=== PATIENT | female | born 1960 | race Caucasian/White ===

== ENCOUNTER 2023-06-08 08:58 | Outpatient (CLI) | payer BC, SELFPAY ==
--- OUTSIDE RECORDS SUMMARY | 2023-06-09 08:47 | XMS_ITS | Continuity of Care Document ---
Author Name Unknown Organization [facility] Address [address] [place] [address] Phone Care Team Providers Care Geochemist Name Role Phone Caitlin OD, Carol Unavailable Unavailable Allergies, Adverse Reactions, Alerts Substance Reaction Status Criticality amoxicillin HivesHives Active No Information PENICILLIN Active No Information monosodium glutamate Anaphylaxis Active No Info rmation shellfish derived Active No Informa tion POTASSIUM CLAVULANATE Active No Inf ormation AMOXICILLIN TRIHYDRATE Active No In formation Medications Medication Instructions Dosage Effective Dates (start - stop) Status Comments Restasis 0.05 % eye drops in a dropperette instill 1 drop by ophthalmic route 2 times every day into both eyes 1 drop - Active PROAIR HFA (unknown strength) Not Available - Active EPIPEN (unknown strength) Not Available - Active IBUPROFEN (unknown strength) Not Available - Active MOBIC (unknown strength) Not Available - Active RECLAST (unknown strength) Not Available - Active ADDERALL (unknown strength) Not Available - Active PAPAYA ENZYME (unknown strength) Not Available - Active Vitamin D (unknown strength) Not Available - Active MOTRIN IB (unknown strength) Not Available - Active CALCIUM (unknown strength) Not Available - Active BENTYL (unknown strength) Sig Unknown - Prescribed Elsewhere Not Available - Active NEXIUM (unknown strength) Sig Unknown - Prescribed Elsewhere Not Available - Active SINGULAIR (unknown strength) Sig Unknown - Prescribed Elsewhere Not Available - Active MULTIVITAMINS (unknown strength) Sig Unknown - Prescribed Elsewhere Not Available - Active Restasis 0.05 % eye drops in a dropperette instill 1 drop by ophthalmic route 2 times every day into both eyes 1 drop - No Longer Active called to [place], [place] [phone] VALACYCLOVIR (unknown strength) PRN Not Available - No Longer Active Procedures Procedure Date REFRACTION Ophthalmological Services; Medical Exam And Eval; Comprehensive, Est Pt POSTOP FOLLOW-UP VISIT POSTOP FOLLOW-UP VISIT REVISION OF UPPER EYELID UNLISTED E&M SERVICE VISUAL FIELD EXAMINATION(S) Technical Co mponent EYE PHOTOGRAPHY W/INTERP AND REPORT OFFICE/OUTPATIENT VISIT, EST REFRACTION Ophthalmological Services; Medical Exam And Eval; Comprehensive, Est Pt REFRACTION Ophthalmological Services; Medical Exam And Eval; Comprehensive, Est Pt Routine Vision exam Routine Vision exam Routine ophthalmological exa OFFICE/OUTPATIENT VISIT, EST OFFICE/OUTPATIENT VISIT, EST Routine ophthalmological exa Routine ophthalmological exa Routine ophthalmological exa Routine ophthalmological exa UNLISTED E&M SERVICE Routine ophthalmological exa OFFICE/OUTPATIENT VISIT, EST Routine ophthalmological exa EYE EXAM ESTABLISHED PAT OFFICE/OUTPATIENT VISIT, EST CLOSE TEAR DUCT OPENING Permanent tear duct plug CLOSE TEAR DUCT OPENING OFFICE/OUTPATIENT VISIT, EST CLOSE TEAR DUCT OPENING CLOSE TEAR DUCT OPENING Permanent tear duct plug Advance Directives Directive Yes / No Effective Date File Name No Information Encounters Encounter Description Practice Location Reason(s) For Visit Diagnoses Date Provider Providers Copied on Encounter [facility], [address], [place], [place], [id number] , [place] tel:[phone] [facility] decreased NVA (chief complaint) Nuclear sclerosis of both eyesCortical age-related cataract, both eyesPVD (posterior vitreous detachment), right eyeVitreous syneresis of left eyeKeratoconju nctivitis siccaHyperopia of both eyesRegular astigmatism of both eyesPresbyopia of both eyes 2 Caitlin Medina. [address], [place], [place], [id number], [place]. [phone] [facility], [address], [place], [place], [id number] , [place] tel: [phone] [facility] [place] No Information 2 Eva Barnett. [address], [place], [place], [id number], [place]. [phone] [facility], [address], [place], [place], [id number] , [place] tel:[phone] [facility] [place] s/p Bilateral upper eyelid blepharoplasty (chief complaint) Postoperative eye state 2 Rylan Jorge. [address], [place], [place], [id number], [place]. [phone] [facility], [address], [place], [place], [id number] , [place] tel:[phone] [facility] F/u exam, postop (chief complaint) Post-operative state 2 Rylan Jorge. [address], [place], [place], [id number], [place]. [phone] [facility], [address], [place], [place], [id number] , [place] tel:[phone] [facility] No Information 2 Rylna Jorge. [address], [place], [place], [id number], [place]. [phone] UNLISTED E&M SERVICE [facility], [address], [place], [place], [id number] , [place] tel: [phone] [facility] [place] Surgery Scheduling (chief complaint) Dermatochalasi s of right upper eyelidDermatoc halasis of left upper eyelid 2 Rylan Jorge. [address], [place], [place], [id number], [place]. [phone] OFFICE/OUTPA TIENT VISIT, EST [facility], [address], [place], [place], [id number] , [place] tel:[phone] [facility] Blepharoplasy OU/ DMC OU (chief complaint) Dermatochalasi s of right upper eyelidDermatoc halasis of left upper eyelidEczemato us dermatitis of right upper eyelidEczemato us dermatitis of right lower eyelidEczemato us dermatitis of left upper eyelidEczemato us dermatitis of left lower eyelid 2 Rylan Jorge. [address], [place], [place], [id number], [place]. [phone] Referring Provider: Luisito Mtz, [address], [place], [address] . tel:[phone] [facility], [address], [place], [place], [id number] , [place] tel:[phone] [facility] [place] Dry Eye and Irritation (chief complaint) Keratoconjunct ivitis siccaHyperopia of both eyesPresbyopia of both eyesDermatocha lasis of right upper eyelidDermatoc halasis of left upper eyelid 1 Baljinder Hernandez. [address] [facility], [address], [place], [address], [place]. tel:[phone] [facility], [address], [place], [place], [id number] , [place] tel:[phone] [facility] [place] Cloudy vision (chief complaint) Combined form of age-related cataract, both eyesPresbyopia of both eyesInsufficie ncy of tear film of both eyes 1 Eva Barnett. [address], [place], [place], [id number], [place]. [phone] [facility], [address], [place], [id number] , [place] tel: [phone] [facility] [place] SHAR OU (chief complaint) Hypermetropia, bilateralPresb yopiaDry eye syndrome of bilateral lacrimal glandsAge-rela wanda nuclear cataract, bilateral 3-202 0 No Information [facility], [address], [place], [id number] , [place] tel: [phone] [facility] [place] Decrease Vision OU (chief complaint) Hypermetropia, bilateralPresb yopiaDry eye syndrome of bilateral lacrimal glands -201 9 No Information [facility], [address], [place], [id number] , [place] tel: [phone] [facility] [place] Decreased vision ou (chief complaint) Hypermetropia, bilateralPresb yopiaAge-relat ed nuclear cataract, bilateral 0-201 8 No Information OFFICE/OUTPA TIENT VISIT, EST [facility], [address], [place], [place], [id number] , tel: [phone] [facility] [place] dry eyes (chief complaint) Dry eyes, bilateral 7 Leland Jane. [address], [place], [address], [place]. [phone] OFFICE/OUTPA TIENT VISIT, EST [facility], [address], [place], [place], [id number] , tel:[phone] [facility] [place] Dry eyes (chief complaint) Dry eyes due to decreased tear production 7 Leland Phillpish. [address], [place], [address], [place]. [phone] Referring Provider: Stevan Taylor, [address] [place] [address], [address]. tel:[phone] [facility], [address], [place], [place], [id number] , tel:[phone] [facility] [place] decreased vision (chief complaint)Tear ing (chief complaint) Hypermetropia of both eyesBilateral presbyopiaNucl ear senile cataract of both eyesDry eyes, bilateral Apr-2 0-201 7 Hemcallum Calles. [address] [place] [address], [address], [place]. tel:[phone] [facility], [address], [place], [place], [id number] , [place] tel: [phone] [facility] [place] Routine CEE/Crusty OU (chief complaint) Hypermetropia of both eyesBilateral presbyopiaNucl ear senile cataract of both eyes Apr-1 9-201 6 Hemcallum Calles. [address] [place] [address], [address], [place]. tel:[phone] [facility], [address], [place], [place], [id number] , [place] tel: [phone] [facility] decreased vision (chief complaint)Floa ters (chief complaint) PresbyopiaHype ropiaCataract Nuclear SenileVitreous floaters Nov-0 8-201 5 [facility] [address] [place] [address], [address], [place]. tel:[phone] [facility], [address], [place], [place], [id number] , [place] tel: [phone] [facility] a comprehensive exam (chief complaint) PresbyopiaDry Eye SyndromeCatara ct Nuclear Senile 0 7-201 4 [facility] Stevan. [address] [place] [address], [address], [place]. tel:[phone] UNLISTED E&M SERVICE [facility], [address], [place], [place], [id number] , [place] tel: [phone] [facility] Rx Check (chief complaint) Presbyopia 0 3-201 3 [facility] Stevan. [address] [place] [address], [address], [place]. tel:[phone] [facility], [address], [place], [id number] , [place] tel:[phone] [facility] [place] a comprehensive exam (chief complaint)tear ing (chief complaint) Presbyopia Dec-2 7-201 2 Jaswinder Calles. [facility] [place], [place], [facility], . tel:[phone] OFFICE/OUTPA TIENT VISIT, EST [facility], [address], [place], [place], [id number] , [place] tel: [phone] [facility] [place] emergency (chief complaint)fore ign body sensation (chief complaint) Dry Eye SyndromeCornea l Erosion Recurrent 4201 2 Eva Barnett. [address], [place], [place], [id number], [place]. [phone] [facility], [address], [place], [place], [id number] , tel:[phone] [facility] [place] a comprehensive exam (chief complaint)decr eased vision (chief complaint) Presbyopia Dec-2 0-201 1 Jaswinder Calles. [facility] [place], [place], [facility], . tel:[phone] [facility], [address], [place], [place], [id number] , tel: [phone] [facility] [place] No Information Tai-0 1-201 1 Jaswinder Calles. [address] [place] [address], [address], . tel:[phone] [facility], [address], [place], [place], [id number] , [place] tel: [phone] [facility] No Information Mar-0 3-201 1 Magali English. [address], [place], [place], [id number], [place]. tel:[phone] OFFICE/OUTPA TIENT VISIT, EST [facility], [address], [place], [place], [id number] , [place] tel:[phone] [facility] [place] No Information Dec-0 8-201 0 Leland Jane. [address], [place], [address], [place]. tel:[phone] OFFICE/OUTPA TIENT VISIT, EST [facility], [address], [place], [place], [id number] , [place] tel:[phone] [facility] [place] No Information 9-201 0 Leland Jane. [address], [place], [address], [place]. tel:[phone] Family History Family Member Type Diagnosis Age At Onset Father Problem (finding) blindness or tumor/canc er of the eye Father Problem (finding) Maternal history of cheryle betes mellitus Mother Problem (finding) cataract Mother Problem (finding) Maternal history of cheryle betes mellitus Father Problem (finding) cataract Mother Problem (finding) HBP Father Problem (finding) HBP Immunizations Vaccine Date Status Comments Flu (split) (3 yrs or older) administered Source: Other Provider Payers Payer name Insurance type Covered libertarian ID Authoriza tikaila(s) [facility] [id number] Social History Type Description Quantity Date Captured Comments Alcohol Use Details Caffeine Use Details Unknown Tobacco Use Status Smoking Status Unknown if ever smoked Non-Smoking Tobacco Use Details : No Details Available : No Details Available Sex Female Chief Complaint And Reason For Visit From encounter dated '11/19/2022 12:05'. decreased NVA (chief complaint). Description: The 62 year old patient presents for evaluation of decreased NVA. Pt has noticed changes in both DVA and NVA, but more so in NVA. PT is currently using old glasses as she lost her new glasses. Even when pt had her newer glasses, she states that she was noticing herself struggling with NVA and some slight changes in DVA. Pt states no pain or irritation. Pt uses Restasis QD OU and artificial tears for dry eyes. Pt states that Restasis and artificial tears do help with her dry eyes. Reason For Referral Reason For Referral No Information Plan Of Treatment Date Type Action Status Appointment Pollack, Leeann- CR Pt, Needs Rescheduled BOOKED Patient Education Health Informa tion for You: [facility] Connect completed Patient Education Health Informa tion for You: [facility] Connect completed Patient Education Dicyclomine: Monalisa mcdanieldougNorberto Drug Information completed Future Order: Radiology Order Ze [id number] (8-CR-3), Sent on: Sent History Of Present Illness Encounter Date Complaint History Of Prese nt Illness decreased NVA The 62 year old patient presents for evaluation of decreased NVA. Pt has noticed changes in both DVA and NVA, but more so in NVA. PT is currently using old glasses as she lost her new glasses. Even when pt had her newer glasses, she states that she was noticing herself struggling with NVA and some slight changes in DVA. Pt states no pain or irritation. Pt uses Restasis QD OU and artificial tears for dry eyes. Pt states that Restasis and artificial tears do help with her dry eyes. s/p Bilateral upper eyelid blepharoplasty The 61 year old patient presents for evaluation of s/p Bilateral upper eyelid blepharoplasty. Pt says eyelids are doing good. There are a few that feel raised. They are still a little sore when she forgets and scratches. However they are much better. NEGATIVE COVID SCREENING F/u exam, postop S/p Bilateral u pper eyelid blepharoplasty (06/02/22). Pt notes her eye are swollen today, was crying last night. Overall doing well from surgery. Pt notes improvement in side vision since surgery. Improvement in FBS since surgery. Surgery Scheduling Pt here to sc hedule surgery with Dr Fagan. Blepharoplasy OU/ DMC OU The 61 year old female presents for evaluation of Blepharoplasy OU/ DMC OU. Pt c/o heaviness in her upperlids OU. She states she lifts her eyelids manually to see better on a regular basis. Pt c/o her lids being heavy and feeling like they are pushing her upper eyelashes onto her eyes and causing fbs. Pt c/o having constant fbs in her OD>OS. Pt c/o blurriness in her Dva and OD>OS. Pt denies any issues with pain or pressure feelings in or around her eyes OU. Pt has no other visual complaints. Redness ANABEL and LLL noted recently.Recently dx with thyroid cancer.Restasis BID OU. AT frequently. Dry Eye and Irritation The 61 ye ar old female presents for evaluation of Dry Eye and Irritation. Pt says she has been having FBS OU, OD>OS usually. Pt believes the FBS started in 2019. Pt thinks vision has changed, current glasses Rx not working for distance anymore, takes glasses off when driving. Pt uses genteal tears and PFATs, uses everyday 6-8x/day. Pt feels that droopy lids are contributing and eyes feel better after lifting eyelids. COVID NEGATIVE SCREEN Cloudy vision The 60 year old female presents for evaluation of Cloudy vision in the right eye and left eye. Pt states that her vision has been feeling cloudier since her last visit. She has noticed a strong sensitivity to car headlights at night. No Halos OU. She feels she needs a lot more light to see when it is dim or dark. No pain or discomfort OU. No flashes but has non new floaters OU. NEGATIVE COVID SCREENING. SHAR OU The 59 year old female presents for evaluation of SHAR OU. Pt states that she lost her most recent pair of glasses last week. Pt states that vision seems to have decreased. Pt denies pain in eyes but there is sometimes discomfort. Pt uses artificial tears 3-4x a week to help dryness. Decrease Vision OU The 58 year o ld female presents for evaluation of Decrease Vision OU in NVA > DVA. Pt states her vsn has noticed DVA changes a lot progressing over past year. Pt uses drops for GenTeal eye ointment and has some watering occasionally. Pt states street signs and night driving has become troublesome to where pt tries not to drive at night. especially at dusk. Decreased vision ou The 57 year old female presents for evaluation of Decreased vision ou without correction. Pt states that DVA seems to be fuzzy at times without correction for DVA. Pt states that the glasses that she has is to help with very small print on glasses and feels that they aren't working well and is using a magnifying glasses to help read the fine print now. Is wondering about trying monovision CL's. dry eyes The 56 year old female presents for evaluation of dry eyes in the OU. Pt states that Ou seems to be getting better with the use of ? Refresh tears drops every morning and a couple times at night thoughout the week. very happy with results. Dry eyes The 56 year old female presents for evaluation of Dry eyes in both eyes. She states one eye is worse than the other but does not know which. It started about 1 year ago. She states when it bothers her it is constant, but other times it does not bother her at all. She states dryess bothers her most when she is in catholic. Pt states she does not experience any pain or irritation, just tearing. She states she uses GenTeal a few times a week, as needed. Pt states vision gets blurry from tearing.Pt was referred by Dr. San.When doing DVA test OS she complained of double vision horizontally and seeing shadows. She states she has never had double vision before. She states vision OS is a little more blurry than usual as well. She did not have double vision when testing near vision, when she had her glasses on. decreased vision The 56 year old female presents for evaluation of decreased vision. in the right eye and left eye. It started about 1 year(s) ago. The onset was gradual. It affects distance vision. Seems more difficult to read words on tv. Tearing The patient is p resent for evaluation of Tearing. in the left > right. Pt states she is using Art tears periodically throughout the day, and not helping. Tearing off and on throughout the day. States she feels she needs to drink more water Routine CEE/Crusty OU The 55 yea r old female presents for evaluation of Routine CEE/Crusty OU. Pt states nva has become more blurry, hard to see with out glasses, states for a acouple days her eyes feels like there is matter in them, this morning OS felt more irritated and crusty, has not tried anything to alleviate the symptoms, hx of dry eyes and pt states she has been sick with a cold for over a weekHx-Presbyopia Floaters The patient is p resent for evaluation of Floaters in the right eye and left eye. It started about 2 week(s) ago. It occurs all the time. The onset was sudden. It affects VA not affected. The symptom is constant. The condition is described as seeing floaters. Isolated flash. decreased vision The 54 year old female presents for evaluation of decreased vision. in the right eye and left eye. It started about 1 year(s) ago. The onset was gradual. It affects near vision. Functional Status Date Functional Assessmen t No Information Instructions Date Instruction Additional Infor mation Impression/Plan Impression/Plan Impression/Plan Impression/Plan Impression/Plan Impression/Plan Impression/Plan Return in 1 year Joanna Lujan for Complete Exam. Related to Age-related nuclear cataract, bilateral Impression/Plan Related to Age-r elated nuclear cataract, bilateral Return in 1 year Joanna Lujan for Complete Exam. Related to Dry eye syndrome of bilateral lacrimal glands Impression/Plan Related to Dry e ye syndrome of bilateral lacrimal glands Impression/Plan - Discussed dry eye diagnosis with patient. Recommend using hot compresses. Continue using art tears up to 4 times daily as needed.RV with any optom next year for CEE. Related to Dry eyes, bilateral - RV with any optom next year for CEE. Related to Dry eyes, bilateral - Discussed dry eye diagnosis with patient. Recommend using hot compresses. Recommend using art tears up to 4 times daily as needed. List of recommended artificial tears provided.RV with Dr. Dutton in 1 month for office call. Related to Dry eyes due to decreased tear production - RV with Dr. Adiel alcantara in 1 month for office call. Related to Dry eyes due to decreased tear production - -A new glasses Rx was given. Changing glasses does allow you to see clearer. Power change in Dva will help pt see clearer for distance-Cataracts of both eyes, no significant change in vsn-Dry Eyes, will send pt for consult with Dr Dutton next availableRV with any Electrical Software Engineer in 1 yr for CEENext available consult for Dry Eyes with Dr Dutton Related to Hypermetropia of both eyes - RV with any Optome trist in 1 yr for CEENext available consult for Dry Eyes with Dr Dutton Related to Hypermetropia of both eyes - A new glasses Rx w as given. Return in 1 year. Monitor this (these) for changes. Return if a problem is suspected. Educational materials provided:Cataract. Related to See list of assessments above - There are no retin a rips, holes or tears. The floaters you now see are your new normal. Monitor for a change. Return if a difference is seen. Monitor this (these) for changes. Return if a problem is suspected. Educational materials provided:Flashers/floaters. A new glasses Rx was given. Return in 1 year. Related to See list of assessments above General plan -Presby opia -Dry Eye Syndrome -Cataract, Nuclear Sclerosis - A new glasses Rx was given. No change or change optional. Return in 1 year. Monitor this (these) for changes. Return if a problem is suspected. Educational materials provided:Cataract. Related to See impression: general plan Presbyopia - Zeigler + 2.00 add is routine glasses Rx. Patient does very close, detailed work. Wants flat top design. Had recommended office design 11/17 2012. Related to Presbyopia General plan -Presby opia - A new glasses Rx was given. Return in 1 year. Related to See impression: general plan Dry Eye Syndrome Rec urrent Corneal Erosion OD - Continue lubrication: refresh PM qhs OU, artificial tears prn as well. Decrease alrex to qd OD x 2 days, then D/C alrex. Continue vigamox until out. 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 Return in 1 year. Related to Presbyopia Assessments Type Assessment Date assessment Nuclear sclerosis of both eyes D assessment Cortical age-related cataract, b oth eyes assessment PVD (posterior vitreous detachme nt), right eye assessment Vitreous syneresis of left eye D assessment Keratoconjunctivitis sicca assessment Hyperopia of both eyes assessment Regular astigmatism of both eyes assessment Presbyopia of both eyes 022 Patient Care Teams Name Effective Dates (start - stop) Status Members No Information
== END 2023-06-08 08:59 | disposition home or self-care (01) ==
LOC: NFLDREF 06-09 08:44
PROVIDERS: PCP Emergency Medicine; Referring Provider Emergency Medicine; Visit Provider Emergency Medicine
DX: E78.5 Hyperlipidemia, unspecified (principal); Z13.1 Encounter for screening for diabetes mellitus; Z86.39 Personal history of other endocrine, nutritional and metabolic disease
CPT/HCPCS: 80053; 80061; 84443

== ENCOUNTER 2023-06-18 10:32 | Outpatient (CLI) | payer BC, SELFPAY ==
--- OUTSIDE RECORDS SUMMARY | 2023-06-18 10:36 | XMS_ITS | Continuity of Care Document ---
Author Name Unknown Organization [facility] Address [address] [place] [address] Phone Care Team Providers Care Chief Electrician Name Role Phone Caitlin OD, Carol Unavailable [...] drop - No Longer Active called to [place], [place] [phone] VALACYCLOVIR (unknown strength) PRN Not Available - [...] Encounter [facility], [address], [place], [place], [id number] , [place] tel:[phone] [facility] decreased NVA (chief complaint) Nuclear sclerosis of both eyesCortical age-related cataract, both eyesPVD (posterior vitreous detachment), right eyeVitreous syneresis of left eyeKeratoconju nctivitis siccaHyperopia of both eyesRegular astigmatism of both eyesPresbyopia of both eyes 2 Caitlin Medina. [address], [place], [place], [id number], [place]. [phone] [facility], [address], [place], [place], [address] , [place] tel: [phone] [facility] No Information 2 Eva Barnett. [address], [place], [place], [id number], [place]. [phone] [facility], [address], [place], [place], [id number] , [place] tel:[phone] [facility] [place] s/p Bilateral upper eyelid blepharoplasty (chief complaint) Postoperative eye state 2 Rylan Jorge. [address], [place], [place], [id number], [place]. [phone] [facility], [address], [place], [place], [id number] , [place] tel:[phone] [facility] F/u exam, postop (chief complaint) Post-operative state 2 Rylan Jorge. [address], [place], [place], [id number], [place]. [phone] [facility], [address], [place], [address] , [place] tel:[phone] [facility] No Information 2 Rylan Jorge. [address], [place], [place], [id number], [place]. [phone] UNLISTED E&M SERVICE [facility], [address], [place], [place], [address] , [place] tel: [phone] [facility] [place] Surgery Scheduling (chief complaint) Dermatochalasi s of right upper eyelidDermatoc halasis of left upper eyelid 2 Rylan Jorge. [address], [place], [place], [address], [place]. [phone] OFFICE/OUTPA TIENT VISIT, EST [facility], [address], [place], [place], [id number] , [place] tel:[phone] [facility] Blepharoplasy OU/ DMC OU (chief complaint) Dermatochalasi s of right upper eyelidDermatoc halasis of left upper eyelidEczemato us dermatitis of right upper eyelidEczemato us dermatitis of right lower eyelidEczemato us dermatitis of left upper eyelidEczemato us dermatitis of left lower eyelid 2 Rylan Jorge. [address], [place], [place], [id number], [place]. [phone] Referring Provider: Luisito Mtz, [address], [place], [address] . tel:[phone] [facility], [address], [place], [place], [id number] , [place] tel:[phone] [facility] Dry Eye and Irritation (chief complaint) Keratoconjunct ivitis siccaHyperopia of both eyesPresbyopia of both eyesDermatocha lasis of right upper eyelidDermatoc halasis of left upper eyelid 1 Baljinder Hernandez. [address] [facility], [address], [place], [address], [place]. tel:[phone] [facility], [address], [place], [place], [id number] , [place] tel:[phone] [facility] [place] Cloudy vision (chief complaint) Combined form of age-related cataract, both eyesPresbyopia of both eyesInsufficie ncy of tear film of both eyes 1 Eva Barnett. [address], [place], [place], [address], [place]. [phone] [facility], [address], [place], [id number] , [place] tel: [phone] [facility] [place] SHAR OU (chief complaint) Hypermetropia, bilateralPresb yopiaDry eye syndrome of bilateral lacrimal glandsAge-rela wanda nuclear cataract, bilateral 3-202 0 No Information [facility], [address], [place], [id number] , [place] tel: [phone] [facility] [place] Decrease Vision OU (chief complaint) Hypermetropia, bilateralPresb yopiaDry eye syndrome of bilateral lacrimal glands -201 9 No Information [facility], [address], [place], [id number] , [place] tel: [phone] [facility] [place] Decreased vision ou (chief complaint) Hypermetropia, bilateralPresb yopiaAge-relat ed nuclear cataract, bilateral 0-201 8 No Information OFFICE/OUTPA TIENT VISIT, EST [facility], [address], [place], [place], [id number] , tel: [phone] [facility] [place] dry eyes (chief complaint) Dry eyes, bilateral 7 Leland Jane. [address], [place], [address], [place]. [phone] OFFICE/OUTPA TIENT VISIT, EST [facility], [address], [place], [place], [id number] , tel:[phone] [facility] [place] Dry eyes (chief complaint) Dry eyes due to decreased tear production 7 Leland Phillipsh. [address], [place], [address], [place]. [phone] Referring Provider: Stevan Taylor, [address] [place] [address], [address]. tel:[phone] [facility], [address], [place], [place], [id number] , tel:[phone] [facility] [place] decreased vision (chief complaint)Tear ing (chief complaint) Hypermetropia of both eyesBilateral presbyopiaNucl ear senile cataract of both eyesDry eyes, bilateral Apr-2 0-201 7 Hemcallum Calles. [address] [place] [address], [address], [place]. tel:[phone] [facility], [address], [place], [place], [address] , [place] tel: [phone] [facility] [place] Routine CEE/Crusty OU (chief complaint) Hypermetropia of both eyesBilateral presbyopiaNucl ear senile cataract of both eyes Apr-1 9-201 6 Hemcallum Calles. [address] [place] [address], [address], [place]. tel:[phone] [facility], [address], [place], [place], [address] , [place] tel: [phone] [facility] [place] decreased vision (chief complaint)Floa ters (chief complaint) PresbyopiaHype ropiaCataract Nuclear SenileVitreous floaters Nov-0 8-[address] [facility] [address] [place] [address], [address], [place]. tel:[phone] [facility], [address], [place], [place], [address] , [place] tel: [phone] [facility] [place] a comprehensive exam (chief complaint) PresbyopiaDry Eye SyndromeCatara ct Nuclear Senile 0 7-201 4 [facility] Ste[facility]. [address] [place] [address], [address], [place]. tel:[phone] UNLISTED E&M SERVICE [facility], [address], [place], [place], [address] , [place] tel: [phone] [facility] [place] Rx Check (chief complaint) Presbyopia 0 3-201 3 [facility] Stevan. [address] [place] [address], [address], [place]. tel:[phone] [facility], [address], [place], [place], [address] , [place] tel:[phone] [facility] [place] a comprehensive exam (chief complaint)tear ing (chief complaint) Presbyopia Dec-2 7-201 2 Jaswinder Calles. [facility] [place], [place], [facility], . tel:[phone] OFFICE/OUTPA TIENT VISIT, EST [facility], [address], [place], [place], [address] , [place] tel: [phone] [facility] [place] emergency (chief complaint)fore ign body sensation (chief complaint) Dry Eye SyndromeCornea l Erosion Recurrent 4201 2 Eva Barnett. [address], [place], [place], [address], [place]. [phone] [facility], [address], [place], [place], [address] , tel:[phone] [facility] [place] a comprehensive exam (chief complaint)decr eased vision (chief complaint) Presbyopia Dec-2 0-201 1 Jaswinder Calles. [facility] [place], [facility], . tel:[phone] [facility], [address], [place], [place], [address] , tel: [phone] [facility] [place] No Information Tai-0 1-201 1 Jaswinder Calles. [address] [place] [address], [address], . tel:[phone] [facility], [address], [place], [place], [address] , [place] tel: [phone] [facility] [place] No Information Mar-0 3-201 1 Magali English. [address], [place], [place], [address], [place]. tel:[phone] OFFICE/OUTPA TIENT VISIT, EST [facility], [address], [place], [place], [address] , [place] tel:[phone] [facility] [place] No Information Dec-0 8-201 0 Leland Jane. [address], [place], [address], [place]. tel:[phone] OFFICE/OUTPA TIENT VISIT, EST [facility], [address], [place], [place], [address] , [place] tel:[phone] [facility] [place] No Information 9-201 0 Leland Jane. [address], [place], [address], [place]. tel:[phone] Family History Family Member Type Diagnosis Age [...] Provider Payers Payer name Insurance type Covered republican ID Authoriza tikaila(s) [facility] [id number] Social History Type Description Quantity Date Captured [...] Information completed Future Order: Radiology Order Ze [id number] (8-[id number]), Sent on: Sent History Of Present [...] syndrome of bilateral lacrimal glands Impression/Plan - RV with any optom next year [...] with Dr Dutton next availableRV with any Wood Bucker in 1 yr for CEENext available consult [...] to See impression: general plan Presbyopia - [place] + 2.00 add is routine glasses Rx. [...]
--- NOTE | 2023-06-18 10:45 | CRLHL7_ITS ---
For Patients: As a result of the Cures Act, medical imaging exams and procedure reports are released immediately into your electronic medical record. You may view this report before your referring provider. If you have questions, please contact your health care provider. DIGITAL DIAGNOSTIC BILATERAL MAMMOGRAM USING TOMOSYNTHESIS AND COMPUTER-AIDED DETECTION CLINICAL HISTORY: LEFT breast pain. COMPARISON: 05/19/2022, 03/26/2021. TECHNIQUE: Digital BILATERAL mammogram in four projections. Tomosynthesis and CAD utilized. BREAST COMPOSITION: There are areas of scattered fibroglandular density. FINDINGS: 3D CC/MLO BILATERAL mammogram images submitted. No suspicious masses or architectural distortion. No adenopathy. No suspicious calcifications. IMPRESSION: Normal BILATERAL mammograms. No evidence of malignancy. RECOMMENDATIONS: Annual BILATERAL screening mammography. Results and recommendations discussed with the patient. BI-RADS Category 2: Benign A lay language report of this examination will be provided to the patient. Dictated by Jean Claude Montilla MD @ 06/18/2023 11:45:38 AM jj/Dictated by: Jean Claude Montilla MD @ 06/18/2023 11:45:00 AM (Electronically Signed)
== END 2023-06-18 10:33 | disposition home or self-care (01) ==
LOC: MAMMO 10:34
PROVIDERS: PCP Emergency Medicine; Visit Provider Emergency Medicine
DX: N64.4 Mastodynia (principal)
CPT/HCPCS: 77066; G0279

== ENCOUNTER 2024-07-13 09:12 | Outpatient (CLI) | payer BC, SELFPAY ==
--- OUTSIDE RECORDS SUMMARY | 2024-07-16 06:55 | XMS_ITS ---
Author Organization [facility] Address [address] [place] [address] Care Team Providers Care Airline Flight Attendant Name Role Phone Farshad Cheung MD Primary Care Provider [phone] Jamari Soto MD Unavailable More Davenport MD Unavailable [phone] Active Problems Problem Noted Date Diagnosed Date Papillary thyroid carcinoma 06/01/2022 Overview: 1.6cm tumor on thyroidectomy pathology. Surgery 02/25/22 at [facility] Family history of diabetes mellitus 06/19/2021 Age-related osteoporosis wit hout current pathological fracture 11/23/2018 Dry eyes 05/20/2018 Gastric ulcer 04/30/2015 Gastritis 04/30/2015 Schatzki's ring 04/30/2015 Esophageal stricture 04/29/2015 Dysphagia 04/29/2015 GERD (gastroesophageal reflux disease) 5 Hypoglycemia 04/29/2015 Hyperthyroidism 04/29/2015 Cough 04/25/2015 Asthma exacerbation 04/24/2015 Left wrist pain 06/20/2013 Ganglion of left wrist 06/20/2013 Current Oncology Plans No current plan information found. Other Current Plans ZOLEDRONIC ACID (ZOMETA) (RECLAST)* Plan Start Date:07/19/2023 Treatment Medications No medications scheduled. Past Plans Radiation Treatments * No radiation treatments are documented for this patient in [facility]. Treatments may have been administered in another system.
--- OUTSIDE RECORDS SUMMARY | 2024-07-16 06:55 | XMS_ITS | Clinical Summary ---
Author Organization [facility] Element ID Address [address] [facility] [place] [address] Care Team Providers Care Electrical Logging Engineer Name Role Phone Farshad Cheung MD Primary Care Provider [phone] Jamari Soto MD Unavailable More Davenport MD Unavailable [phone] Source Comments [facility] includes the following individual entities: [facility] (inclues all departments and units of [facility] such as [facility], [facility], [facility], [facility], [facility], [facility]), [facility], [facility], [facility], [facility] Allergies Active Allergy Reactions Criticality Noted Date Comments Amoxicillin Hives 05/10/2017 Augmentin Hives Medium 06/19/2013 Bee Venom Anaphylaxis High 04/05/2017 Clavulanic Acid 06/19/2021 Monosodium Glutamate Shortness Of Breath High 2014 Shellfish-Derived Products Hives 6 Sulfa Antibiotics Hives 06/19/2013 Medications Medication Sig Dispensed Refills Start Date End Date Status montelukast (SINGULAIR) 10 MG tablet Take 10 mg by mouth daily. 0 Active dicyclomine (BENTYL) 10 MG capsule Take 10 mg by mouth as needed. 0 Active ibuprofen (ADVIL,MOTRIN) 800 MG tablet Take 800 mg by mouth 3 times daily as needed. 0 Active albuterol (PROVENTIL HFA) inhaler Inhale 1 puff into the lungs as needed. 0 Active Qwtssvx-Dqwbetmyh-Ognu min D (CALCIUM 500 PO) Take 500 mg by mouth daily. 0 Active amphetamine-dextroamph etamine (ADDERALL, 15MG,) 15 MG tabletIndications:inst ructed as PRN Take 10 mg by mouth daily. 0 Active esomeprazole (NEXIUM) 40 MG granules Take 40 mg by mouth. 0 Active Active Problems Problem Noted Date Diagnosed Date Papillary thyroid carcinoma 06/01/2022 Overview: 1.6cm tumor on thyroidectomy pathology. Surgery 02/25/22 at [facility] Family history of diabetes mellitus 06/19/2021 Age-related osteoporosis wit hout current pathological fracture 11/23/2018 Dry eyes 05/20/2018 Gastric ulcer 04/30/2015 Gastritis 04/30/2015 Schatzki's ring 04/30/2015 Esophageal stricture 04/29/2015 Dysphagia 04/29/2015 GERD (gastroesophageal reflux disease) 5 Hypoglycemia 04/29/2015 Hyperthyroidism 04/29/2015 Cough 04/25/2015 Asthma exacerbation 04/24/2015 Left wrist pain 06/20/2013 Ganglion of left wrist 06/20/2013 Encounters Date Type Department Care Team Description 05/16/2024 Telephone [facility] [address] [facility] [address] [place] [address] Steven Ching, MILY Medication Management (Reclast) from Last 3 Months Family History Medical History Relation Name Comments Diabetes Brother Heart disease Brother Hypertension Brother Alcohol abuse Father Diabetes Father Heart disease Father Hypertension Father High cholesterol Maternal Grandfather Diabetes Maternal Grandmother High cholesterol Maternal Grandmother Hypertension Maternal Grandmother Uterine cancer Maternal Grandmother Diabetes Mother High cholesterol Mother Hypertension Mother Ovarian cancer Mother Alcohol abuse Paternal Grandfather Diabetes Paternal Grandfather Heart disease Paternal Grandfather High cholesterol Paternal Grandfather Hypertension Paternal Grandfather Diabetes Paternal Grandmother Heart disease Paternal Grandmother High cholesterol Paternal Grandmother Hypertension Paternal Grandmother High cholesterol Sister Relation Name Status Comments Brother Father Maternal Grandfather Maternal Grandmother Mother Paternal Grandfather Paternal Grandmother Sister Social History Tobacco Use Types Packs/Day Years Used Date Smoking Tobacco: Former Smokeless Tobacco: Never Tobacco Cessation:Counseling Given: No Alcohol Use Standard Drinks/Week Comments Yes 3 (1 standard drink = 0.6 oz pur e alcohol) 4 times a week PHQ-2 Answer Date Recorded PHQ-9 Total Score [All quest ions must be answered for a valid score] Interpretation of Total Score Depression Severity: 1-4 Minimal Depression, 5-9 Mild Depression, 10-14 Moderate Depression, 15-19 Moderately Severe Depression, 20-27 Severe Depression 0 06/01/2022 Intimate Partner Violence Answer Date R ecorded Fear of Current or Ex-Partner Not on file Emotionally Abused Not on file 11/30/2021 Physically Abused Not on file 11/30/2021 Sexually Abused Not on file 11/30/2021 Sex and Gender Information Value Date Recorded Sex Assigned at Not on file Gender Identity Not on file Sexual Orientation Not on file Last Filed Vital Signs Vital Sign Reading Time Taken Comments Blood Pressure 137/71 07/17/2022 12:56 PM EDT Pulse 69 07/17/2022 12:56 PM EDT Temperature 36.7 ??C (98.1 ??F) 07/17/2022 12:56 PM E DT Respiratory Rate 16 07/17/2022 12:56 PM EDT Oxygen Saturation 100% 07/17/2022 12:56 PM EDT Inhaled Oxygen Concentration - - Weight 55.9 kg (123 lb 3.2 oz) 07/17/2022 12:56 PM EDT Height 156.2 cm (5' 1.5) 06/01/2022 1:44 PM EDT Body Mass Index 22.9 06/01/2022 1:44 PM EDT Plan of Treatment Health Maintenance Due Date Last Done Comments Asthma Spirometry (Yearly) 1960 HIV Screening 1960 Colon Cancer Screening (Colonoscopy) 2004 Herpes Zoster Vaccine (1 of 2) 2009 Pneumococcal Vaccine: Pediatrics (0 to 5 Years) and At-Risk Patients (6 to 64 Years) (2 of 2 - PCV) 10/09/2011 10/09/2010 Cervical Cancer Screening (Cytology) 02/05/2019 02/06/2016, 10/02/2014, 09/25/2013, Additional history exists Breast Cancer Screening with Mammography 07/15/2020 07/15/2018, 05/08/2016, 10/30/2014, Additional history exists COVID-19 Vaccine (3 - 2022-24 season) 2023 06/29/2021, 05/28/2021 Depression Screening (Most Recent Screening Displayed) 11/22/2023 06/01/2022 Influenza Vaccine (#1) 2024 2, 11/10/2021, 11/13/2019, Additional history exists DTap/Tdap/Td Vaccine (3 - Td or Tdap) 11/16/2030 11/16/2020, 01/11/2012 Hepatitis C Screening (Patient's between 18 & 79 without liver disease) Completed 06/09/2019 HPV Vaccine Aged Out No longer eligi ble based on patient's age to complete this topic Hepatitis A Vaccine Aged Out No longe r eligible based on patient's age to complete this topic Hib Vaccine Aged Out No longer eligi ble based on patient's age to complete this topic Polio Vaccine Aged Out No longer elig ible based on patient's age to complete this topic Care Teams Electrical Logging Engineer Relationship Specialty Start Date End Date Farshad Cheung MD [address] [place] [phone] PCP - General 02/11/12 Jamari Soto MD [address] [id number] Obstetrics and Gynecology 09/27/13 More aDvenport MD [address] [facility] [address] [place], [place] [id number] Manager Instrumentation Obstetrics and Gynecology 11/03/16
--- OUTSIDE RECORDS SUMMARY | 2024-07-16 06:55 | XMS_ITS | Encounter Summary ---
Author Organization [facility] Address [address] [place] [address] Care Team Providers Care Printing Assistant Name Role Phone Farshad Cheung MD Primary Care Provider [phone] Jamari Soto MD Unavailable More Davenport MD Unavailable Reason for Visit * Reason Onset Date Comments Medication Management 05/16/2024 Reclast Encounter Details Date Type Department Care Team Description 05/16/2024 Telephone [facility] Diabetes and Endocrinology [address] [facility] [address] [place] [address] Steven Ching TECH Medication Management (Reclast) Social History Tobacco Use Types Packs/Day Years Used Date Smoking Tobacco: Former Smokeless Tobacco: Never Alcohol Use Standard Drinks/Week Comments Yes 3 [...] on file Sexual Orientation Not on file documented as of this encounter Functional Status Functional Status Response Date of Assess ment Is the patient deaf or does he/she have serious difficulty hearing? No 04/24/2015 Is the patient blind or does he/she have serious difficulty seeing even when wearing glasses? No 5 Does the patient have seriou s difficulty walking or climbing stairs? (5 years old or older) No 04/24/2015 Do you have difficulty dress ing or bathing? (5 years old or older) No 04/24/2015 Because of a physical, menta l, or emotional condition, does this patient have difficulty doing errands alone such as visiting a doctor's office or shopping? (15 years old or older) No 04/24/2015 Cognitive Status Response Date of Assessm ent Because of a physical, menta l, or emotional condition, does this patient have serious difficulty concentrating, remembering, or making decisions? (5 years old or older) No 04/24/2015 documented as of this encounter Progress Notes * Steven Ching - 05/18/2024 8:42 AM EDT Thank you for looking into the matter. I will reach out to patient for conformation on the matter. * Joanna Henry PA-C - 05/17/2024 10:04 AM EDT It looks like the last message mentioned that pt moved to [place]. You could reach out to pt to see if she is still out of state and then we can remove from our tracker and patien panel. * Steven Ching - 05/16/2024 10:42 AM EDT Joanna Please Advise, Leeann is on my tracker for Reclast. While looking into it i see the patient no showed for their last infusion appointment on 07/14/23 and Leeann cancelled their last OV visit on 06/01/23. How should we proceed with patient's reclast treatment? Patient was a previous Dr. Miranda patient and was last seen in clinic on 06/18/22 documented in this encounter Plan of Treatment Not on file documented as of this encounter Visit Diagnoses Not on filedocumented in this encounter Additional Health Concerns Assessment Noted Time PHQ-9 Depression Total Score: 0 06/01/20 1:48 PM EDT A fall risk assessment has been complete d for the patient 06/08/2016 12:38 PM EDT documented as of this encounter Care Teams Printing Assistant Relationship Specialty Start Date End Date Farshad Cheung MD [address] [place] [address] PCP - General 02/11/12 Jamari Soto MD [address] [place] [address] Obstetrics and Gynecology 09/27/13 More Davenport MD [address] [facility] [address] [place], [place] [id number] Emergency Crew Supervisor Obstetrics and Gynecology 11/03/16 documented as of this encounter
--- OUTSIDE RECORDS SUMMARY | 2024-07-16 06:55 | XMS_ITS | Clinical Summary ---
[facility] Organization [facility] Address [address] [place] [address] Care Team Providers Care Rental Sales Agent Name Role Phone Unavailable Primary Care Provider Unavailabl e Source Comments You are receiving this document as you are listed as the primary care provider,follow-up provider, or the patient has been referred to you for consultation.This is in compliance with the Medicare and[facility] EHR Incentive Program,which states Providers who transition their patient to another setting of careor provider of care or refers their patient to another provider of care shouldprovide summary care record for each transition of care or referral. [id number] Allergies Active Allergy Reactions Criticality Noted Date Comments Amoxicillin Rash 11/16/2020 hives Amoxicillin-Pot Clavulanate Rash 11/16/20 20 Cardioplegia [place] Formula Anaphylaxis High 11/16 Shellfish-Derived Products Anaphylaxis High 11/16/20 20 Hives Medications Medication Sig Dispensed Refills Start Date End Date Status amphetamine-dextroamph etamine (ADDERALL) 15 MG tablet Take 15 mg by mouth daily. Active esomeprazole (NEXIUM) 20 MG capsule Take 20 mg by mouth daily. Active montelukast (SINGULAIR) 10 MG tablet Take 10 mg by mouth every evening. Active dicyclomine (BENTYL) 10 MG capsule Take 10 mg by mouth 4 times daily before meals and at bedtime. Active ibuprofen (MOTRIN) 800 MG tablet Take 800 mg by mouth every 8 hours as needed for Pain. Active Calcium Acetate, Phos Binder, (CALCIUM ACETATE OR) Active multivitamin (THERAGRAN) tablet Take 1 Tablet by mouth daily. Active Active Problems No known active problems Immunizations Name Administration Dates Next Due Tdap 11/16/2020 Family History Medical History Relation Name Comments Diabetes Father High Cholesterol Father Hypertension Father Cancer Mother Diabetes Brother High Cholesterol Brother Hypertension Brother Cancer Maternal Aunt ovarian Relation Name Status Comments Father Mother Brother Maternal Aunt Social History Tobacco Use Types Packs/Day Years Used Date Smoking Tobacco: Former Alcohol Use Standard Drinks/Week Comments Yes 1 (1 standard drink = 0.6 oz pur e alcohol) PHQ-2 Answer Date Recorded PHQ-2 Score 0 02/13/2021 Sex and Gender Information Value Date Recorded Sex Assigned at Not on file Gender Identity Not on file Sexual Orientation Not on file Last Filed Vital Signs Vital Sign Reading Time Taken Comments Blood Pressure 132/80 06/23/2021 11:02 AM CDT Pulse 83 06/23/2021 11:01 AM CDT Temperature 36.7 ??C (98.1 ??F) 06/23/2021 11:02 AM C DT Respiratory Rate 18 06/23/2021 11:01 AM CDT Oxygen Saturation 99% 06/23/2021 11:01 AM CDT Inhaled Oxygen Concentration - - Weight 56.7 kg (125 lb) 02/13/2021 10:17 AM CDT Height 156.8 cm (5' 1.75) 02/13/2021 10:17 AM C DT Body Mass Index 23.05 02/13/2021 10:17 AM CDT Plan of Treatment Health Maintenance Due Date Last Done Comments Cervical Cancer Screening Due 1959 Colon Cancer Screening Plan Due 1959 Hep C Screening (Preventive Services) 1959 Mammogram 1959 HIV Screening (Preventive Services) 1975 Adult Preventive Visit 1977 Cholesterol 2004 Zoster/Shingles (1 of 2) 2009 COVID-19 Vaccine ( - 2022-2 4 season) 2023 Influenza (#1) 2024 DTaP/Tdap/Td (2 - Tdap) 11/16/2030 11/16/2020 HepA Aged Out No longer eligi ble based on patient's age to complete this topic HepB Aged Out No longer eligi ble based on patient's age to complete this topic Hib Aged Out No longer eligi ble based on patient's age to complete this topic IPV (Polio) Aged Out No longer eligi ble based on patient's age to complete this topic MCV4 Aged Out No longer eligi ble based on patient's age to complete this topic Pneumococcal Aged Out No longer eligi ble based on patient's age to complete this topic
--- OUTSIDE RECORDS SUMMARY | 2024-07-16 06:55 | XMS_ITS | Clinical Summary ---
Author Organization [facility] Address [address] [place] [id number] Care Team Providers Care Business Services Officer Name Role Phone Physician, Not Available At [facility] MD Primary Care Provider Unavailable Allergies Active Allergy Reactions Criticality Noted Date Comments Amoxicillin Hives 05/10/2017 Bee Venom Anaphylaxis 04/05/2017 Msg Shortness of Breath High 04/24/2015 Shellfish-Derived Products 6 Sulfa Drugs 06/19/2013 Medications Medication Sig Dispensed Refills Start Date End Date Status amphetamine-dextroamph etamine (ADDERALL) 15 MG tablet take by mouth. 0 Active atoMOXetine (STRATTERA) 25 MG capsule take by mouth. 0 Active dicyclomine (BENTYL) 10 MG capsule take by mouth. 0 Active ibuprofen (MOTRIN) 800 MG tablet take by mouth. 0 Active mometasone (NASONEX) 50 MCG/ACT nasal spray into nose. 0 Ac tive montelukast (SINGULAIR) 10 MG tablet take by mouth. 0 Active amphetamine-dextroamph etamine (ADDERALL XR) 15 MG 24 hr capsule take 1 capsule by mouth every morning 0 03/11/2017 Active cyclobenzaprine (FLEXERIL) 10 MG tablet take 1 tablet by mouth at bedtime 0 03/18/2017 Active ibuprofen (MOTRIN) 600 MG tablet 0 03/20/2017 Active montelukast (SINGULAIR) 10 MG tablet TK 1 T PO ONCE A DAY UTD 3 03/18/2017 Active esomeprazole (NEXIUM) 40 MG packet take 40 mg by mouth Every morning (before breakfast). 0 Active ALBUTEROL IN take by inhalation. 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 Cuboid fracture 04/09/2017 Chronic pain 04/09/2017 Family History Medical History Relation Name Comments Diabetes Brother Heart Disease Brother Diabetes Father Heart Disease Father Stroke Father Blood Disorder/Disease Mother Cancer Mother ovarian Diabetes Mother Relation Name Status Comments Brother Father Mother Social History Tobacco Use Types Packs/Day Years Used Date Smoking Tobacco: Former Sex and Gender Information Value Date Recorded Sex Assigned at Not on file Gender Identity Not on file Sexual Orientation Not on file Last Filed Vital Signs Vital Sign Reading Time Taken Comments Blood Pressure 112/72 05/10/2017 2:14 PM EDT Pulse 65 05/10/2017 2:14 PM EDT Temperature - - Respiratory Rate - - Oxygen Saturation 99% 04/05/2017 1:11 PM EDT Inhaled Oxygen Concentration - - Weight 54.2 kg (119 lb 6.4 oz) 05/10/2017 2:14 P M EDT Height 156.2 cm (5' 1.5) 05/10/2017 2:14 PM EDT Body Mass Index 22.2 05/10/2017 2:14 PM EDT Plan of Treatment Health Maintenance Due Date Last Done Comments Breast Cancer Screening (Bilateral) 1959 CT Colonography 1959 Colonoscopy 1959 Colorectal Cancer Screening 1959 FIT-DNA 1959 FIT/iFOBT 1959 Hepatitis C Antibody Screening 1959 Sigmoidoscopy 1959 HIV SCREENING 1974 DTaP/Tdap/Td Vaccine (1 - Tdap) 1978 Cervical Cancer Screening 1980 Health Maintenance Exam (Adult) 1981 Shingrix Vaccine (1 of 2) 2009 RSV Vaccine (Adult) (1 - 1-d ose 60+ series) 2019 COVID-19 Vaccine ( - 2022-2 4 season) 2023 Flu Vaccine (#1) 06/22/2024 Hepatitis B Vaccine Aged Out No longe r eligible based on patient's age to complete this topic Care Teams Business Services Officer Relationship Specialty Start Date End Date Physician, Not Available At MD Walter PCP - General 04/05/17
--- OUTSIDE RECORDS SUMMARY | 2024-07-16 06:55 | XMS_ITS | Referral Summary ---
Author Organization [facility] Address [address] [place] [id number] Care Team Providers Care Oil Well Fishing Tool Technician Name Role Phone Physician, Not Available At [facility] MD Primary Care Provider Unavailable Allergies Active [...] 05/10/2017 Cuboid fracture 04/09/2017 Chronic pain 04/09/2017 Social History Tobacco Use Types Packs/Day Years [...] 05/10/2017 2:14 PM EDT Plan of Treatment Not on file Care Teams Oil Well Fishing Tool Technician Relationship Specialty Start Date End Date Physician, Not Available At MD Walter PCP - General 04/05/17
--- OUTSIDE RECORDS SUMMARY | 2024-07-16 06:56 | XMS_ITS | Continuity of Care Document ---
Author Organization [facility] Address [address] [place] [address] Phone Care Team Providers Care Parts Administrator Name Role Phone Caitlin OD, Carol Unavailable Unavailable Allergies, Adverse Reactions, Alerts Substance Reaction Status Criticality amoxicillin HivesHives Active No Information PENICILLIN Active No Information monosodium glutamate Anaphylaxis Active No Info rmation shellfish derived Active No Informa tion POTASSIUM CLAVULANATE Active No Inf ormation AMOXICILLIN TRIHYDRATE Active No In formation Medications Medication Instructions Dosage Effective Dates (start - stop) Status Comments Polytrim 10,000 unit-1 mg/mL eye drops Instill one drop right eye four times per day. - Active ketorolac 0.5 % eye drops Instill one drop right eye four times per day. - Active RESTASIS 0.05% OPHTH SINGLE USE 60 INSTILL 1 DROP IN BOTH EYES TWICE DAILY - Active PROAIR HFA (unknown strength) Not Available - Active EPIPEN (unknown strength) Not Available - Active IBUPROFEN (unknown strength) Not Available - Active MOBIC (unknown strength) Not Available - Active ADDERALL [...] - Prescribed Elsewhere Not Available - Active Procedures Procedure Date REFRACTION Routine Vision Exam Established Patient OFFICE/OUTPATIENT VISIT, EST OFFICE/OUTPATIENT VISIT, EST [facility]; Medical Exam & Eval; Comprehensive, Est Pt Routine Vision exam REFRACTION Ophthalm[facility] Services; Medical Exam And Eval; [...] Providers Copied on Encounter [facility], [address], [place], [id number] , [place] tel:[phone] [facility] [place] routine exam (chief complaint) Hyperopia of both eyesRegular astigmatism, right eyePresbyopia of both eyesChronic dryness of both eyesNuclear sclerosis of both eyesCortical age-related cataract, both eyes 4 Caitlin Carol. [address], [place], [id number], [place]. [phone] OFFICE/OUTPA TIENT VISIT, EST [facility], [address], [place], [id number] , [place] tel: [phone] [facility] [place] Corneal Abrasion OD (chief complaint) Hyperopia of both eyesAbrasion of right cornea, subsequent encounter 4 Ellis Seymour. [address], [place], [id number], [place]. [phone] OFFICE/OUTPA TIENT VISIT, EST [facility], [address], [place], [id number] , [place] tel: [phone] [facility] [place] trauma/injury (chief complaint) Abrasion of right cornea, initial encounter 4 Ellis Seymour. [address], [place], [id number], [place]. [phone] [facility], [address], [place], [id number] , [place] tel: [phone] [facility] [place] Keratoconjunct ivitis sicca / Cataract OU / PVD OU (chief complaint) Dry eye syndrome, bilateralNucle ar sclerosis of both eyesCortical age-related cataract, both eyesPVD (posterior vitreous detachment), right eyeVitreous syneresis, left 4 Caitlin Carol. [address], [place], [id number], [place]. [phone] [facility], [address], [place], [id number] , [place] tel: [phone] [facility] [place] No Information 4 Caitlin Carol. [address], [place], [id number], [place]. tel:[phone] [facility], [address], [place], [id number] , [place] tel: [phone] [facility] [place] Hyperopia OU / Astigmatism OU (chief complaint) Hyperopia of both eyesRegular astigmatism, right eyePresbyopia of both eyes 3 Caitlin Carol. [address], [place], [id number], [place]. tel:[phone] [facility], [address], [place], [id number] , [place] tel: [phone] [facility] [place] decreased NVA (chief complaint) Nuclear sclerosis of both eyesCortical age-related cataract, both eyesPVD (posterior vitreous detachment), right eyeVitreous syneresis of left eyeKeratoconju nctivitis siccaHyperopia of both eyesRegular astigmatism of both eyesPresbyopia of both eyes 2 Caitlin Carol. [address], [place], [place], [id number], [place]. tel:[phone] [facility], [address], [place], [place], [id number] , [place] tel:[phone] [facility] [place] s/p Bilateral upper eyelid blepharoplasty (chief complaint) Postoperative eye state 2 Rylan Jorge. [address], [place], [place], [id number], [place]. tel:[phone] [facility], [address], [place], [id number] , [place] tel:[phone] [facility] [place] F/u exam, postop (chief complaint) Post-operative state 2 Rylan Jorge. [address], [place], [place], [id number], [place]. tel:[phone] [facility], [address], [place], [place], [id number] , [place] tel:[phone] [facility] No Information 2 Rylan Jorge. [address], [place], [place], [id number], [place]. tel:[phone] UNLISTED E&M SERVICE [facility], [address], [place], [place], [id number] , [place] tel:[phone] [facility] [place] Surgery Scheduling (chief complaint) Dermatochalasi s of right upper eyelidDermatoc halasis of left upper eyelid Tai- 2 Rylan Jorge. [address], [place], [place], [id number], [place]. tel:[phone] OFFICE/OUTPA TIENT VISIT, EST [facility], [address], [place], [place], [id number] , [place] tel:[phone] [facility] [place] Blepharoplasy OU/ DMC OU (chief complaint) Dermatochalasi s of right upper eyelidDermatoc halasis of left upper eyelidEczemato us dermatitis of right upper eyelidEczemato us dermatitis of right lower eyelidEczemato us dermatitis of left upper eyelidEczemato us dermatitis of left lower eyelid 2 Rylan Jorge. [address], [place], [place], [id number], [place]. tel:[phone] Referring Provider: Luisito Mtz, [address], [place], [address] . tel:[phone] [facility], [address], [place], [place], [id number] , [place] tel:[phone] [facility] [place] Dry Eye and Irritation (chief complaint) Keratoconjunct ivitis siccaHyperopia of both eyesPresbyopia of both eyesDermatocha lasis of right upper eyelidDermatoc halasis of left upper eyelid 1 Baljinder Hernandez. [address] [facility], [address], [place], [address], [place]. tel:[phone] [facility], [address], [place], [id number] , [place] tel: [phone] [facility] [place] Cloudy vision (chief complaint) Combined form of age-related cataract, both eyesPresbyopia of both eyesInsufficie ncy of tear film of both eyes 1 Eva Barnett. [address], [place], [place], [id number], [place]. [phone] [facility], [address], [place], [id number] , [place] tel: [phone] [facility] [place] SHAR OU (chief complaint) Hypermetropia, bilateralPresb yopiaDry eye syndrome of bilateral lacrimal glandsAge-rela wanda nuclear cataract, bilateral 0 No Information [facility], [address], [place], [place], [id number] , tel: [phone] [facility] [place] Decrease Vision OU (chief complaint) Hypermetropia, bilateralPresb yopiaDry eye syndrome of bilateral lacrimal glands 9 No Information [facility], [address], [place], [id number] , tel: [phone] [facility] [place] Decreased vision ou (chief complaint) Hypermetropia, bilateralPresb yopiaAge-relat ed nuclear cataract, bilateral 8 No Information OFFICE/OUTPA TIENT VISIT, EST [facility], [address], [place], [place], [id number] , tel: [phone] [facility] [place] dry eyes (chief complaint) Dry eyes, bilateral 7 Leland Jane. [address], [place], [address], [place]. [phone] OFFICE/OUTPA TIENT VISIT, EST [facility], [address], [place], [id number] , tel: [phone] [facility] [place] Dry eyes (chief complaint) Dry eyes due to decreased tear production 201 7 Leland Jane. [address], [place], [address], [place]. tel:[phone] Referring Provider: Stevan Taylor, [address] [place] [address], [address]. tel:[phone] [facility], [address], [place], [id number] , [place] tel:[phone] [facility] [place] decreased vision (chief complaint)Tear ing (chief complaint) Hypermetropia of both eyesBilateral presbyopiaNucl ear senile cataract of both eyesDry eyes, bilateral Apr-2 0 7 Jaswinder Calles. [address] [place] [address], [address], [place]. tel:[phone] [facility], [address], [place], [place], [id number] , [place] tel:[phone] [facility] [place] Routine CEE/Crusty OU (chief complaint) Hypermetropia of both eyesBilateral presbyopiaNucl ear senile cataract of both eyes Feb- 6 Michealcallum Calles. [address] [place] [address], [address], [place]. [phone] [facility], [address], [place], [place], [id number] , [place] tel:[phone] [facility] [place] decreased vision (chief complaint)Floa ters (chief complaint) PresbyopiaHype ropiaCataract Nuclear SenileVitreous floaters 5 Jaswinder Calles. [address] [place] [address], [address], [place]. tel:[phone] [facility], [address], [place], [id number] , [place] tel:[phone] [facility] [place] a comprehensive exam (chief complaint) PresbyopiaDry Eye SyndromeCatara ct Nuclear Senile 4 Jaswinder Calles. [address] [place] [address], [address], [place]. [phone] UNLISTED E&M SERVICE [facility], [address], [place], [place], [id number] , tel: [phone] [facility] [place] Rx Check (chief complaint) Presbyopia 3-201 3 Jaswinder Calles. [facility] [place], [place], [facility], . tel:[phone] [facility], [address], [place], [place], [id number] , [place] tel: [phone] [facility] [place] a comprehensive exam (chief complaint)tear ing (chief complaint) Presbyopia Dec-2 7-201 2 Jaswinder Calles. [address] [place] [address], [facility], . tel:[phone] OFFICE/OUTPA TIENT VISIT, EST [facility], [address], [place], [place], [id number] , tel:[phone] [facility] [place] emergency (chief complaint)fore ign body sensation (chief complaint) Dry Eye SyndromeCornea l Erosion Recurrent 201 2 Eva Anibal. [address], [place], [place], [id number], [place]. [phone] [facility], [address], [place], [place], [id number] , [place] tel: [phone] [facility] [place] a comprehensive exam (chief complaint)decr eased vision (chief complaint) Presbyopia Dec-2 0-201 1 Jaswinder Calles. [address] [place] [address], [facility], [place]. tel:[phone] [facility], [address], [place], [id number] , [place] tel: [phone] [facility] [place] No Information Tai-0 1-201 1 Jaswinder Calles. [address] [place] [address], [facility], . tel:[phone] [facility], [address], [place], [place], [id number] , tel:[phone] [facility] [place] No Information 0 3-201 1 Magali English. [address], [place], [place], [id number], [place]. [phone] OFFICE/OUTPA TIENT VISIT, EST [facility], [address], [place], [place], [id number] , tel: [phone] [facility] [place] No Information 8201 0 Leland Jane. [address], [place], [address], [place]. tel:[phone] OFFICE/OUTPA TIENT VISIT, EST [facility], [address], [place], [place], [id number] , [place] tel: [phone] [facility] [place] No Information 9201 0 Leland Jane. [address], [place], [address], [place]. [phone] Family History Family Member Type Diagnosis Age At Onset Father Problem (finding) blindness or tumor/canc er of the eye Father Problem (finding) Maternal history of cheryle betes mellitus Mother Problem (finding) cataract Mother Problem (finding) Maternal history of cheryle betes mellitus Father Problem (finding) cataract Mother Problem (finding) HBP Father Problem (finding) HBP Paternal aunt Problem Cancer, breast Immunizations Vaccine Date Status Comments Flu (split) (3 yrs or older) administered Source: Other Provider Payers Payer name Insurance type Covered alliance party ID Authorseraa tikaila(s) [facility] [id number] Social History Type Description Quantity Date Captured Comments Alcohol Use Details Caffeine Use Details Unknown Tobacco Use Status Ex-cigarette smoker 024 Smoking Status Former smoker Sex Female Chief Complaint And Reason For Visit From encounter dated '06/30/2024 15:25'. routine exam (chief complaint). Description: The 63 year old patient presents for evaluation of routine exam. Pt states OD has had a burning sensation since yesterday. Dva is stable with current Rx OU per pt. Nva has declined and pt is having difficulty reading with current Rx. Pt was treated for corneal abrasion OD 8-5-24 and 5-0-70Uqtiufody DC'd 7-0-15Jlhihpfs OU BID 12pmGenteal OU PRN Reason For Referral Reason For Referral No Information Plan Of Treatment Date Type Action Status Patient Education Health Informa tion for You: MedlinePlus Connect completed Patient Education Health Informa tion for You: MedlinePlus Connect completed Patient Education Dicyclomine: M edlinePlus Drug Information completed Future Order: Radiology Order Ze [id number] (8-CR-3), Sent on: Sent History Of Present Illness Encounter Date Complaint History Of Prese nt Illness routine exam The 63 year old patient presents for evaluation of routine exam. Pt states OD has had a burning sensation since yesterday. Dva is stable with current Rx OU per pt. Nva has declined and pt is having difficulty reading with current Rx. Pt was treated for corneal abrasion OD 8-5-24 and 9-6-23Laggrxgob DC'd 6-9-62Zbydbmci OU BID 12pmGenteal OU PRN Corneal Abrasion OD The 63 year old patient presents for evaluation of Corneal Abrasion OD. PT c/o burning sensation OD, pt states it has been occurring today only . PT c/o blurry vision OD. PT taking and tolerating Ketoralac 4x a day last taken 830am Polytrim 4x a day 730am. trauma/injury The 63 year old patient presents for evaluation of trauma/injury in the right eye. Pt c/o blurry vision OD and pain, light sensitivity, and FBS OD since yesterday, states using restasis, ice packs, and tylenol which seems to help pain a little. States pt hit OD on the corner of a beside table early yesterday morning. States good comfort OS and vision stable OS since last visit(11/23/2023). Pt notes having history of injuring OD before.Pt using:Restasis BID OU, last dose 8:30a today.AT PRN OU Keratoconjunctivitis sicca / Cataract OU / PVD OU The 63 year old patient presents for evaluation of Keratoconjunctivitis sicca / Cataract OU / PVD OU. Pt states that she is here for her annual eye exam and to see if she needs to replace her gls. Pt lost her newest pair of glasses. She can tell that the older ones do not work as well as her newer pair. Pt has no other visual complaints OU. Pt taking her eye gtt as directed and tolerating it well. Pt using her AT 1-2 x/week, they are helpful when used. -Restasis BID OU @ 1100am Hyperopia OU / Astigmatism OU Th e 62 year old patient presents for evaluation of Hyperopia OU / Astigmatism OU. Pt states that she is here for her annual eye exam. Pt Nva and Dva are both good with gls OU. Pt c/o some dryness OU that she is using AT for about once a week or so. They are helpful when used. Pt taking her Restasis as directed usually, but she has been taking it once a day or less, lately. Pt has no other visual complaints OU.-Restasis BID OU @ Wednesday night.-Negative Covid Screening. decreased NVA The 62 year old patient [...] bothers her most when she is in evangelical. Pt states she does not experience any [...] No Information Instructions Date Instruction Additional Infor acosta Impression/Plan Impression/Plan Impression/Plan Impression/Plan Impression/Plan Impression/Plan Impression/Plan Impression/Plan Impression/Plan Impression/Plan Impression/Plan Impression/Plan [...] to Dry eyes, bilateral - RV with Dr. Adiel alcantara in 1 month for office call. Related to Dry eyes due to decreased tear production - Discussed dry eye diagnosis with patient. Recommend using hot compresses. Recommend using art tears up to 4 times daily as needed. List of recommended artificial tears provided.RV with Dr. Dutton in 1 month for office call. Related to Dry eyes due to decreased tear production - RV with any Optome trist in 1 yr for CEENext available consult for Dry Eyes with Dr Dutton Related to Hypermetropia of both eyes - -A new glasses Rx was given. Changing glasses does allow you to see clearer. Power change in Dva will help pt see clearer for distance-Cataracts of both eyes, no significant change in vsn-Dry Eyes, will send pt for consult with Dr Dutton next availableRV with any Irrigation System Operator in 1 yr for CEENext available consult [...] to See impression: general plan Presbyopia - [place] + 2.00 add is routine glasses Rx. [...] to Presbyopia Assessments Type Assessment Date assessment Hyperopia of both eyes 24 assessment Regular astigmatism, right eye A assessment Presbyopia of both eyes 024 assessment Chronic dryness of both eyes Jun assessment Nuclear sclerosis of both eyes A assessment Cortical age-related cataract, b oth eyes Patient Care Teams Name Effective Dates (start - stop) Status Members No Information
== END 2024-07-13 09:13 | disposition home or self-care (01) ==
LOC: NFLDREF 07-16 06:54
PROVIDERS: PCP Emergency Medicine; Referring Provider Emergency Medicine; Visit Provider Emergency Medicine
DX: Z00.00 Encounter for general adult medical examination without abnormal findings (principal); C73 Malignant neoplasm of thyroid gland; M81.0 Age-related osteoporosis without current pathological fracture; E78.2 Mixed hyperlipidemia
CPT/HCPCS: 80053; 80061; 82306; 84443

== ENCOUNTER 2024-07-31 12:37 | Outpatient (CLI) | payer BC, SELFPAY ==
--- OUTSIDE RECORDS SUMMARY | 2024-07-31 12:42 | XMS_ITS | Clinical Summary ---
Author Organization [facility] Address [address] [place] [address] Care Team Providers Care Funeral Counselor Name Role Phone Physician, Not Available At [facility] MD Primary Care Provider Unavailable [...] (1 - 1-d ose 60+ series) 2019 Flu Vaccine (#1) 06/22/2024 COVID-19 Vaccine ( - 2022-2 4 season) 2024 Hepatitis B Vaccine Aged Out No longe r eligible based on patient's age to complete this topic Care Teams Funeral Counselor Relationship Specialty Start Date End Date Physician, Not Available At MD Walter PCP - General 04/05/17
--- OUTSIDE RECORDS SUMMARY | 2024-07-31 12:42 | XMS_ITS | Continuity of Care Document ---
Author Organization [facility] Address [address] [place] [address] Phone Care Team Providers Care Automotive Light Mechanic Name Role Phone Caitlin OD, Carol Unavailable [...] [facility], [address], [place], [id number] , [place] tel:[phone] [facility] [place] routine exam (chief complaint) Hyperopia of both eyesRegular astigmatism, right eyePresbyopia of both eyesChronic dryness of both eyesNuclear sclerosis of both eyesCortical age-related cataract, both eyes 4 Caitlin Carol. [address], [place], [id number], [place]. [phone] OFFICE/OUTPA TIENT VISIT, EST [facility], [address], [place], [id number] , [place] tel: [phone] [facility] [place] Corneal Abrasion OD (chief complaint) Hyperopia of both eyesAbrasion of right cornea, subsequent encounter 4 Ellis Seymour. [address], [place], [id number], [place]. [phone] OFFICE/OUTPA TIENT VISIT, EST [facility], [address], [place], [id number] , [place] tel: [phone] [facility] [place] trauma/injury (chief complaint) Abrasion of right cornea, initial encounter 4 Ellis Seymour. [address], [place], [id number], [place]. [phone] [facility], [address], [place], [id number] , [place] tel: [phone] [facility] [place] Keratoconjunct ivitis sicca / Cataract OU / PVD OU (chief complaint) Dry eye syndrome, bilateralNucle ar sclerosis of both eyesCortical age-related cataract, both eyesPVD (posterior vitreous detachment), right eyeVitreous syneresis, left 4 Caitlin Carol. [address], [place], [id number], [place]. [phone] [facility], [address], [place], [id number] , [place] tel: [phone] [facility] [place] No Information 4 Caitlin Carol. [address], [place], [id number], [place]. tel:[phone] [facility], [address], [place], [id number] , [place] tel: [phone] [facility] [place] Hyperopia OU / Astigmatism OU (chief complaint) Hyperopia of both eyesRegular astigmatism, right eyePresbyopia of both eyes 3 Caitlin Carol. [address], [place], [id number], [place]. tel:[phone] [facility], [address], [place], [id number] , [place] tel: [phone] [facility] [place] decreased NVA (chief complaint) Nuclear sclerosis of both eyesCortical age-related cataract, both eyesPVD (posterior vitreous detachment), right eyeVitreous syneresis of left eyeKeratoconju nctivitis siccaHyperopia of both eyesRegular astigmatism of both eyesPresbyopia of both eyes 2 Caitlin Carol. [address], [place], [place], [id number], [place]. tel:[phone] [facility], [address], [place], [place], [id number] , [place] tel:[phone] [facility] [place] s/p Bilateral upper eyelid blepharoplasty (chief complaint) Postoperative eye state 2 Rylan Jorge. [address], [place], [place], [id number], [place]. tel:[phone] [facility], [address], [place], [place], [id number] , [place] tel:[phone] [facility] [place] F/u exam, postop (chief complaint) Post-operative state 2 Rylan Jorge. [address], [place], [place], [id number], [place]. tel:[phone] [facility], [address], [place], [place], [id number] , [place] tel:[phone] [facility] No Information 2 Rylan Jorge. [address], [place], [place], [id number], [place]. tel:[phone] UNLISTED E&M SERVICE [facility], [address], [place], [place], [id number] , [place] tel:[phone] [facility] [place] Surgery Scheduling (chief complaint) Dermatochalasi s of right upper eyelidDermatoc halasis of left upper eyelid Tai- 2 Rylan Jorge. [address], [place], [place], [id number], [place]. tel:[phone] OFFICE/OUTPA TIENT VISIT, EST [facility], [address], [place], [place], [id number] , [place] tel:[phone] [facility] [place] Blepharoplasy OU/ DMC OU (chief complaint) Dermatochalasi s of right upper eyelidDermatoc halasis of left upper eyelidEczemato us dermatitis of right upper eyelidEczemato us dermatitis of right lower eyelidEczemato us dermatitis of left upper eyelidEczemato us dermatitis of left lower eyelid 2 Rylan Jorge. [address], [place], [place], [id number], [place]. tel:[phone] Referring Provider: Luisito Mtz, [address], [place], [address] . tel:[phone] [facility], [address], [place], [place], [id number] , [place] tel: [phone] [facility] [place] Dry Eye and Irritation (chief complaint) Keratoconjunct ivitis siccaHyperopia of both eyesPresbyopia of both eyesDermatocha lasis of right upper eyelidDermatoc halasis of left upper eyelid 1 Baljinder Hernandez. [address], [address], [place], [address], [place]. tel:[phone] [facility], [address], [place], [id number] , [place] tel: [phone] [facility] [place] Cloudy vision (chief complaint) Combined form of age-related cataract, both eyesPresbyopia of both eyesInsufficie ncy of tear film of both eyes 1 Eva Barnett. [address], [place], [place], [id number], [place]. [phone] [facility], [address], [place], [id number] , [place] tel: [phone] [facility] [place] SHAR OU (chief complaint) Hypermetropia, bilateralPresb yopiaDry eye syndrome of bilateral lacrimal glandsAge-rela wanda nuclear cataract, bilateral 0 No Information [facility], [address], [place], [place], [id number] , tel: [phone] [facility] [place] Decrease Vision OU (chief complaint) Hypermetropia, bilateralPresb yopiaDry eye syndrome of bilateral lacrimal glands 9 No Information [facility], [address], [place], [place], [id number] , tel: [phone] [facility] [place] Decreased vision ou (chief complaint) Hypermetropia, bilateralPresb yopiaAge-relat ed nuclear cataract, bilateral 8 No Information OFFICE/OUTPA TIENT VISIT, EST [facility], [address], [place], [place], [id number] , tel: [phone] [facility] [place] dry eyes (chief complaint) Dry eyes, bilateral 7 Leladn Jane. [address], [place], [address], [place]. [phone] OFFICE/OUTPA TIENT VISIT, EST [facility], [address], [place], [place], [id number] , tel: [phone] [facility] [place] Dry eyes (chief complaint) Dry eyes due to decreased tear production 201 7 Leland Jane. [address], [place], [address], [place]. tel:[phone] Referring Provider: Stevan Taylor, [address] [place] [address], [address]. tel:[phone] [facility], [address], [place], [place], [id number] , [place] tel:[phone] [facility] [place] decreased vision (chief complaint)Tear ing (chief complaint) Hypermetropia of both eyesBilateral presbyopiaNucl ear senile cataract of both eyesDry eyes, bilateral Apr-2 0 7 Jaswinder Calles. [address] [place] [address], [address], [place]. tel:[phone] [facility], [address], [place], [id number] , [place] tel:[phone] [facility] [place] Routine CEE/Crusty OU (chief complaint) Hypermetropia of both eyesBilateral presbyopiaNucl ear senile cataract of both eyes Feb- 6 Michealcallum Calles. [address] [place] [address], [address], [place]. [phone] [facility], [address], [place], [place], [id number] , [place] tel:[phone] [facility] [place] decreased vision (chief complaint)Floa ters (chief complaint) PresbyopiaHype ropiaCataract Nuclear SenileVitreous floaters 5 Jaswinder Calles. [address] [place] [address], [address], [place]. tel:[phone] [facility], [address], [place], [place], [id number] , [place] tel:[phone] [facility] [place] a comprehensive exam (chief complaint) PresbyopiaDry Eye SyndromeCatara ct Nuclear Senile 4 Jaswinder Calles. [address] [place] [address], [address], [place]. [phone] UNLISTED E&M SERVICE [facility], [address], [place], [place], [id number] , tel:[phone] [facility] [place] Rx Check (chief complaint) Presbyopia 3-201 3 Jaswinder Calles. [facility] [place], [place], [facility], . tel:[phone] [facility], [address], [place], [place], [id number] , [place] tel: [phone] [facility] [place] a comprehensive exam (chief complaint)tear ing (chief complaint) Presbyopia Dec-2 7-201 2 Jaswinder Calles. [address] [place] [address], [facility], . tel:[phone] OFFICE/OUTPA TIENT VISIT, EST [facility], [address], [place], [place], [id number] , tel:[phone] [facility] [place] emergency (chief complaint)fore ign body sensation (chief complaint) Dry Eye SyndromeCornea l Erosion Recurrent 201 2 Eva Anibal. [address], [place], [place], [id number], [place]. [phone] [facility], [address], [place], [id number] , [place] tel: [phone] [facility] [place] a comprehensive exam (chief complaint)decr eased vision (chief complaint) Presbyopia Dec-2 0-201 1 Jaswinder Calles. [address] [place] [address], [facility], [place]. tel:[phone] [facility], [address], [place], [place], [address] , [place] tel: [phone] [facility] [place] No Information Tai-0 1-201 1 Jaswinder Calles. [address] [place] [address], [facility], . tel:[phone] [facility], [address], [place], [place], [id number] , tel:[phone] [facility] [place] No Information 0 3-201 1 Magali English. [address], [place], [place], [address], [place]. [phone] OFFICE/OUTPA TIENT VISIT, EST [facility], [address], [place], [place], [id number] , tel: [phone] [facility] [place] No Information 8201 0 Leladn Jane. [address], [place], [address], [place]. tel:[phone] OFFICE/OUTPA TIENT VISIT, EST [facility], [address], [place], [place], [id number] , [place] tel: [phone] [facility] [place] No Information 9201 0 Leland Jane. [address], [place], [address], [place]. [phone] Family History Family Member Type Diagnosis Age [...] Provider Payers Payer name Insurance type Covered constitution party ID Authorseraa tikaila(s) [facility] [id number] Social History Type Description Quantity Date Captured [...] treated for corneal abrasion OD 8-5-24 and 2-5-97Fwyogxepf DC'd 9-4-38Mfoijhlx OU BID 12pmGenteal OU PRN Reason For Referral Reason For Referral No Information Plan Of Treatment Date Type Action Status Patient Education Health Informa tion for You: MedlinePlus Connect completed Patient Education Health Informa tion for You: MedlinePlus Connect completed Patient Education Dicyclomine: M edlinePlus Drug Information completed Future Order: Radiology Order Ze [id number] (8-CR-3), Sent on: Sent History Of Present [...] treated for corneal abrasion OD 8-5-24 and 5-0-16Jdcturydo DC'd 4-6-40Ylshcbsx OU BID 12pmGenteal OU PRN Corneal Abrasion [...] 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 Pt states she does not experience any [...] Impression/Plan Impression/Plan Return in 1 year Joanna Ljuan for Complete Exam. Related to Age-related nuclear [...] with Dr Dutton next availableRV with any Manager User Interface in 1 yr for CEENext available consult [...] to See impression: general plan Presbyopia - [place] + 2.00 add is routine glasses Rx. [...]
--- OUTSIDE RECORDS SUMMARY | 2024-07-31 12:42 | XMS_ITS | Clinical Summary ---
[facility] Address [address] [place] [address] Care Team Providers Care Punch Machine Hand Name Role Phone Unavailable Primary Care Provider Unavailabl e Source Comments You are receiving this document as you are listed as the primary care provider,follow-up provider, or the patient has been referred to you for consultation.This is in compliance with the Medicare andLakehealth Tripoint Medical Centercaid EHR Incentive Program,which states Providers who transition their patient to another setting of careor provider of care or refers their patient to another provider of care shouldprovide summary care record for each transition of care or referral. [employer] Allergies Active Allergy Reactions Criticality Noted Date [...] Vaccine ( - 2022-2 4 season) 2024 Influenza (#1) 2024 DTaP/Tdap/Td (2 - Tdap) [...]
--- OUTSIDE RECORDS SUMMARY | 2024-07-31 12:42 | XMS_ITS | Encounter Summary ---
Author Organization [facility] Address [address] [place] [address] Care Team Providers Care Retail Bakery Manager Name Role Phone Farshad Cheung MD Primary Care Provider [phone] Jamari Soto MD Unavailable More Davenport MD Unavailable [phone] Reason for Visit * Reason Onset Date Comments Medication Management 05/16/2024 Reclast Encounter Details Date Type Department Care Team Description 05/16/2024 Telephone [facility] Diabetes and Endocrinology [address] [place] [address] Steven Ching TECH Medication Management [...] last message mentioned that pt moved to [place]. You could reach out to pt to [...] documented as of this encounter Care Teams Retail Bakery Manager Relationship Specialty Start Date End Date Farshad Cheung MD [address] [place] [address] PCP - General 02/11/12 Jamari Soto MD [address] [place] [address] Obstetrics and Gynecology 09/27/13 More Davenport MD [address] [facility] [address] [place], [place] [id number] Testboard Operator Obstetrics and Gynecology 11/03/16 documented as of this encounter
--- OUTSIDE RECORDS SUMMARY | 2024-07-31 12:42 | XMS_ITS | Clinical Summary ---
Author Organization [facility] Address [address] [place] [address] Care Team Providers Care Garde Manger Name Role Phone Farshad Cheung MD Primary Care Provider [phone] Jamari Soto MD Unavailable More Davenport MD Unavailable [phone] Source Comments [facility] includes the following individual entities: [facility] (inclues all departments and units of [facility] such as [facility], [facility], [facility], [facility], [facility], [facility]), [facility], [facility], [facility], [facility] Allergies Active Allergy Reactions Criticality Noted [...] into the lungs as needed. 0 Active Qlhglyg-Kdzibqvck-Tqdl min D (CALCIUM 500 PO) Take 500 mg by mouth daily. 0 Active amphetamine-dextroamph etamine (ADDERALL, 15MG,) 15 MG tabletIndications:inst ructed as PRN Take 10 mg by mouth daily. 0 Active esomeprazole (NEXIUM) 40 MG granules Take 40 mg by mouth. 0 Active Active Problems Problem Noted Date Diagnosed Date Papillary thyroid carcinoma 06/01/2022 Overview: 1.6cm tumor on thyroidectomy pathology. Surgery 02/25/22 at [facility] Family history of diabetes mellitus 06/19/2021 Age-related [...] Care Team Description 05/16/2024 Telephone [facility] Diabetes and Endocrinology [address] [facility] [place] [address] Steven Ching, MILY Medication Management [...] 07/15/2020 07/15/2018, 05/08/2016, 10/30/2014, Additional history exists Depression Screening (Most Recent Screening Displayed) 11/22/2023 06/01/2022 COVID-19 Vaccine (3 season) 2024 06/29/2021, 05/28/2021 Influenza Vaccine (#1) 2024 2, 11/10/2021, 11/13/2019, [...] age to complete this topic Care Teams Garde Manger Relationship Specialty Start Date End Date Farshad Cheung MD [address] [place] [id number] PCP - General 02/11/12 Jamari Soto MD [address] [id number] Obstetrics and Gynecology 09/27/13 More Davenport MD [address] [facility] [address] [place], [place] [id number] Plan Rep Obstetrics and Gynecology 11/03/16
--- OUTSIDE RECORDS SUMMARY | 2024-07-31 12:42 | XMS_ITS ---
Author Organization [facility] Address [address] [place] [address] Care Team Providers Care Grain Farmer Name Role Phone Farshad Cheung MD Primary Care Provider [phone] Jamari Soto MD Unavailable More Davenport MD Unavailable [phone] Active Problems Problem Noted Date Diagnosed Date Papillary thyroid carcinoma 06/01/2022 Overview: 1.6cm tumor on thyroidectomy pathology. Surgery 02/25/22 at [facility] Family history of diabetes mellitus 06/19/2021 Age-related [...] treatments are documented for this patient in [facility]. Treatments may have been administered in another system.
--- OUTSIDE RECORDS SUMMARY | 2024-07-31 12:42 | XMS_ITS | Referral Summary ---
Author Organization [facility] Address [address] [place] [address] Care Team Providers Care Impregnator Electrolytic Capacitors Name Role Phone Physician, Not Available At [facility] MD Primary Care Provider Unavailable Allergies [...] of Treatment Not on file Care Teams Impregnator Electrolytic Capacitors Relationship Specialty Start Date End Date Physician, Not Available At MD Walter PCP - General 04/05/17
--- NOTE | 2024-07-31 13:00 | CRLHL7_ITS ---
For Patients: As a result of the 21st Century Cures Act, medical imaging exams and procedure reports are released immediately into your electronic medical record. You may view this report before your referring provider. If you have questions, please contact your health care provider. INDICATION: Hepatomegaly, history of thyroid cancer TECHNIQUE: 1.5 T MRI abdomen was performed with pre and postcontrast T1 weighted imaging; T2 weighted imaging; diffusion weighted imaging; in and out of phase imaging COMPARISON: None FINDINGS: Lungs: The lung bases are clear. No pleural or pericardial effusion. Liver: Homogeneous liver parenchyma. There is signal dropout of the hepatic parenchyma on out of phase imaging. Within the right inferior hepatic lobe, there is a lobulated T2 intermediate, diffusion hyperintense, lesion measuring 3.4 x 3.4 cm with non peripheral nodular areas of arterial hyperenhancement within the center of the lesion, that gradually fill in on portal venous and delayed images. There is an additional 0.5 cm hypoenhancing focus in segment 8 (16/25) that enhances on the delayed sequences, indeterminate and too small to accurately characterize. Biliary tree and gallbladder: No intra or extrahepatic biliary dilation. Fluid-filled gallbladder without stones. Spleen: Unremarkable Pancreas: Normal pancreatic parenchyma. No pancreatic masses. No pancreatic duct dilation. Adrenal glands: Unremarkable. Kidneys and ureters: No renal masses or hydronephrosis. Bilateral subcentimeter T2 hyperintensities too small to accurately characterize likely benign cysts. GI tract: No evidence of obstruction or inflammation. Vasculature: The IVC and aorta are patent. No abdominal aortic aneurysm. Lymph nodes: No lymphadenopathy. Abdominal wall: Unremarkable Peritoneum: Foci of susceptibility within the anterior peritoneum may represent surgical clips. Bones: Degenerative change of the imaged spine. Mildly heterogeneous signal of the bone marrow, nonspecific. IMPRESSION: 1. Lobulated lesion within the inferior right hepatic lobe with indeterminate imaging characteristics that include benign and malignant etiology. Specifically, this may represent metastatic disease, however atypical hemangioma could have this appearance. Primary hepatic malignancy is also possible, although considered less likely. In the absence of prior imaging for comparison, PET-CT or tissue sampling could be considered for further evaluation. 2. Additional indeterminate subcentimeter hepatic segment 8 lesion is too small to accurately characterize, but may represent a small hemangioma. 3. Hepatic steatosis. Dictated by Rhonda August MD @ 07/31/2024 4:19:29 PM (Electronically Signed)
== END 2024-07-31 12:38 | disposition home or self-care (01) ==
PROVIDERS: PCP Emergency Medicine; Visit Provider Emergency Medicine
DX: R16.0 Hepatomegaly, not elsewhere classified (principal); K76.9 Liver disease, unspecified; K76.0 Fatty (change of) liver, not elsewhere classified
CPT/HCPCS: 74183; A9575

== ENCOUNTER 2024-10-26 09:23 | Outpatient (CLI) | payer BC, SELFPAY ==
--- OUTSIDE RECORDS SUMMARY | 2024-10-26 09:31 | XMS_ITS | Clinical Summary ---
Author Organization [facility] Address [address] [place] [address] Care Team Providers Care Ruling Machine Feeder Name Role Phone Farshad Cheung MD Primary Care Provider [phone] Jamari Soto MD Unavailable More Davenport MD Unavailable [phone] Source Comments [facility] includes the following individual entities: [facility] (inclues all departments and units of [facility] such as [facility], [facility], [facility], [facility], [facility], [facility]), [facility], [facility], [facility], [facility] Allergies Active Allergy Reactions Criticality Noted Date Comments Amoxicillin Hives 05/10/2017 Augmentin Hives Medium 06/19/2013 Bee Venom Anaphylaxis High 04/05/2017 Clavulanic Acid 06/19/2021 Monosodium Glutamate Shortness Of Breath High 2014 Shellfish-Derived Products Hives 6 Sulfa Antibiotics Hives 06/19/2013 Medications Medication Sig Dispensed Refills Start Date End Date Status montelukast (SINGULAIR) 10 MG tablet Take 10 mg by mouth daily. Active dicyclomine (BENTYL) 10 MG capsule Take 10 mg by mouth as needed. Active ibuprofen (ADVIL,MOTRIN) 800 MG tablet Take 800 mg by mouth 3 times daily as needed. Active albuterol (PROVENTIL HFA) inhaler Inhale 1 puff into the lungs as needed. Active Znszjai-Toqtfzyew-Vwxc min D (CALCIUM 500 PO) Take 500 mg by mouth daily. Active amphetamine-dextroamph etamine (ADDERALL, 15MG,) 15 MG tabletIndications:inst ructed as PRN Take 10 mg by mouth daily. Active esomeprazole (NEXIUM) 40 MG granules Take 40 mg by mouth. Active Active Problems Problem Noted Date Diagnosed Date Papillary thyroid carcinoma 06/01/2022 Overview (06/01/2022): 1.6cm tumor on thyroidectomy pathology. Surgery 02/25/22 at [facility] Family history of diabetes mellitus 06/19/2021 Age-related osteoporosis wit hout current pathological fracture 11/23/2018 Dry eyes 05/20/2018 Gastric ulcer 04/30/2015 Gastritis 04/30/2015 Schatzki's ring 04/30/2015 Esophageal stricture 04/29/2015 Dysphagia 04/29/2015 GERD (gastroesophageal reflux disease) 5 Hypoglycemia 04/29/2015 Hyperthyroidism 04/29/2015 Cough 04/25/2015 Asthma exacerbation 04/24/2015 Left wrist pain 06/20/2013 Ganglion of left wrist 06/20/2013 Family History Medical History Relation Name Comments [...] 69 07/17/2022 12:56 PM EDT Temperature 36.7 C (98.1 F) 07/17/2022 12:56 PM EDT Respiratory Rate 16 07/17/2022 12:56 PM EDT [...] Screening Displayed) 11/22/2023 06/01/2022 COVID-19 Vaccine (3 - season) 2024 06/29/2021, 05/28/2021 Influenza Vaccine (#1) [...] on patient's age to complete this topic Procedures Procedure Name Priority Date/Time Associated Diagnosis Comments HEPATITIS C ANTIBODY Routine 06/09/2019 11:10 AM EDT MAMMO SCREENING BILATERAL DIGITAL Routine 07/15/2018 10:40 AM EDT Encounter for screening mammogram for malignant neoplasm of breast PAP SMEAR Routine 02/06/2016 12:00 AM EDT from Last 3 Months or Most Recently Relevant to Health Maintenance Results * Hepatitis C antibody (06/09/2019 11:10 AM EDT) Hepatitis C Antibody Nonreactive Nonreactive 06/09/2019 4:12 PM EDT S[facility] MAIN Comment: Antibodies to HCV not detected. NOTE: This is a reportable result to the local (formerly [facility]) public health department. Please, contact the appropriate health department. 06/09/2019 11:1 0 AM EDT 06/09/2019 2:25 PM EDT Narrative [facility] - 06/09/2019 4:12 PM EDT Fasting patient Nilesh Lynch MD LAB BLOOD ORDERA BLES [facility] SRL MAIN * Mammo Screening Bilateral Digital (07/15/2018 10:40 AM EDT) Anatomical Region Laterality Modality Breast Bilateral Mammography Impressions 07/15/2018 10:48 AM EDT NEGATIVE There is no mammographic evidence of malignancy. Screening Mammogram in 1 Year - Bilateral is recommended. BI-RADS CATEGORY: Overall: 1 - Negative This facility utilizes a reminder system to ensure that patients receive reminder letters and/or direct phone notification for appointments. This includes reminders for routine screening mammograms, diagnostic mammograms, or other breast imaging studies and interventions when appropriate. This patient will be placed in the appropriate reminder system. Images were viewed on breast imaging approved monitors Narrative 07/15/2018 10:48 AM EDT Reason for exam: Encounter for screening mammogram for malignant neoplasm of breast Tara Model Breast Cancer Risk: 5 YR: 1.1 %, LIFETIME: 6.1 % Compared to: Compared to: 05/08/2016 MAMMO SCREEN DIGITAL W CAD BILATERAL, 10/30/2014 MAMMO SCREEN DIGITAL W CAD BILATERAL, and 09/27/2013 MAMMO SCREEN DIGITAL W CAD PANEL BILAT Current study was evaluated with a Computer Aided Detection (CAD) system. FINDINGS: Breast Density: The breasts are heterogeneously dense, which may obscure small masses. No significant masses, calcifications, or other findings are seen in either breast. There has been no significant change. Nilesh Lynch MD IMG MAMMOGRAPHY ORDERABLES * Pap Smear (02/06/2016 12:00 AM EDT) 02/06/2016 02/07/2016 8:5 1 AM EDT Narrative [facility] - 02/07/2016 4:02 PM EDT SPECIMEN SOURCE: Endocervical, Cervical SPECIMEN TYPE: ThinPrep (Liquid Based) CLINICAL DATA: Postmenopause REASON FOR PAP SMEAR: Screening Low Risk SPECIMEN 1: Screening thinprep pap smear SPECIMEN ADEQUACY: Satisfactory for evaluation. Endocervical/transformation zone component is present. GENERAL DIAGNOSTIC CATEGORY: Negative for intraepithelial lesion or malignancy. Diagnostician:Dru FARIA(ASCP) Powerhouse Electrician Electronically Signed 02/07/2016 Jamari Soto MD PATHOLOGY/CYTOLOGY O RDERABLES [facility] from Last 3 Months or Most Recently Relevant to Health Maintenance Care Teams Ruling Machine Feeder Relationship Specialty Start Date End Date Farshad Cheung MD [address] [place] [address] PCP - General 02/11/12 Jamari Soto MD [address] [place] [address] Obstetrics and Gynecology 09/27/13 More Davenport MD [address] [place], [place] [id number] Machine Puller Obstetrics and Gynecology 11/03/16
--- OUTSIDE RECORDS SUMMARY | 2024-10-26 09:31 | XMS_ITS | Continuity of Care Document ---
Author Organization [facility] Address [address] [place] [address] Phone Care Team Providers Care Container Repairer Name Role Phone Caitlin OD, Carol Unavailable [...] 0.05 % eye drops in a dropperette INSTILL 1 DROP IN BOTH EYES TWICE DAILY - Active [id number] approved through 10/04/2025 Polytrim 10,000 unit-1 mg/mL eye drops Instill one drop right eye four times per day. - Active ketorolac 0.5 % eye drops Instill one drop right eye four times per day. - Active PROAIR HFA (unknown strength) Not [...] - Prescribed Elsewhere Not Available - Active RESTASIS 0.05% OPHTH SINGLE USE 60 INSTILL 1 DROP IN BOTH EYES TWICE DAILY - No Longer Active Procedures Procedure Date Routine Vision Exam Established Patient OFFICE/OUTPATIENT VISIT, [...] Encounter [facility], [address], [place], [id number] , [phone] [facility] No Information 4 Caitlinlogan Melvint. [address], [place], [place], [id number], . [phone] [facility], [address], [place], [place], [address] , tel: [phone] [facility] [place] routine exam (chief complaint) Hyperopia of both eyesRegular astigmatism, right eyePresbyopia of both eyesChronic dryness of both eyesNuclear sclerosis of both eyesCortical age-related cataract, both eyes 4 Caitlinlogan Melvint. [address], [place], [place], [id number], [place]. [phone] OFFICE/OUTPA TIENT VISIT, EST [facility], [address], [place], [place], [id number] , [place] tel: [phone] [facility] Corneal Abrasion OD (chief complaint) Hyperopia of both eyesAbrasion of right cornea, subsequent encounter 4 Ellis Seymour. [address], [place], [place], [address], [place]. [phone] OFFICE/OUTPA TIENT VISIT, EST [facility], [address], [place], [place], [id number] , [place] tel: [phone] [facility] [place] trauma/injury (chief complaint) Abrasion of right cornea, initial encounter 4 Ellis Seymour. [address], [place], [place], [address], [place]. [phone] [facility], [address], [place], [place], [address] , tel: [phone] [facility] [place] Keratoconjunct ivitis sicca / Cataract OU / PVD OU (chief complaint) Dry eye syndrome, bilateralNucle ar sclerosis of both eyesCortical age-related cataract, both eyesPVD (posterior vitreous detachment), right eyeVitreous syneresis, left 4 Caitlin Carol. [address], [place], [id number], . tel:[phone] [facility], [address], [place], [id number] , tel: [phone] [facility] [place] No Information 4 Caitlin Carol. [address], [place], [address], . tel:[phone] [facility], [address], [place], [place], [address] , tel:[phone] [facility] [place] Hyperopia OU / Astigmatism OU (chief complaint) Hyperopia of both eyesRegular astigmatism, right eyePresbyopia of both eyes 3 Caitlin Carol. [address], [place], [place], [address], [place]. tel:[phone] [facility], [address], [place], [place], [address] , tel:[phone] [facility] [place] decreased NVA (chief complaint) Nuclear sclerosis of both eyesCortical age-related cataract, both eyesPVD (posterior vitreous detachment), right eyeVitreous syneresis of left eyeKeratoconju nctivitis siccaHyperopia of both eyesRegular astigmatism of both eyesPresbyopia of both eyes 2 Caitlin Carol. [address], [place], [place], [address], [place]. tel:[phone] [facility], [address], [place], [place], [address] , tel:[phone] [facility] s/p Bilateral upper eyelid blepharoplasty (chief complaint) Postoperative eye state 2 Rylan Jorge. [address], [place], [place], [address], [place]. tel:[phone] [facility], [address], [place], [place], [address] , [place] tel:[phone] [facility] [place] F/u exam, postop (chief complaint) Post-operative state 2 Rylan Jorge. [address], [place], [place], [id number], [place]. [phone] [facility], [address], [place], [place], [address] , [place] tel:[phone] [facility] No Information 2 Rylan Jorge. [address], [place], [place], [address], [place]. tel:[phone] UNLISTED E&M SERVICE [facility], [address], [place], [place], [address] , [place] tel:[phone] [facility] Surgery Scheduling (chief complaint) Dermatochalasi s of right upper eyelidDermatoc halasis of left upper eyelid 2 Rylan Jorge. [address], [place], [place], [address], [place]. tel:[phone] OFFICE/OUTPA TIENT VISIT, EST [facility], [address], [place], [place], [address] , [place] [phone] [facility] [place] Blepharoplasy OU/ DMC OU (chief complaint) Dermatochalasi s of right upper eyelidDermatoc halasis of left upper eyelidEczemato us dermatitis of right upper eyelidEczemato us dermatitis of right lower eyelidEczemato us dermatitis of left upper eyelidEczemato us dermatitis of left lower eyelid 2 Rylan Jorge. [address], [place], [place], [address], [place]. tel:[phone] Referring Provider: Luisito Mtz, [address], [place], [address] . tel:[phone] [facility], [address], [place], [place], [id number] , [place] tel: [phone] [facility] [place] Dry Eye and Irritation (chief complaint) Keratoconjunct ivitis siccaHyperopia of both eyesPresbyopia of both eyesDermatocha lasis of right upper eyelidDermatoc halasis of left upper eyelid 1 Baljinder Hernandez. [address] [facility], [place], [address], [place]. tel:[phone] [facility], [address], [place], [place], [address] , [place] tel: [phone] [facility] Cloudy vision (chief complaint) Combined form of age-related cataract, both eyesPresbyopia of both eyesInsufficie ncy of tear film of both eyes 1 Eva Barnett. [address], [place], [place], [address], . [phone] [facility], [address], [place], [place], [id number] , [place] tel: [phone] [facility] [place] SHAR OU (chief complaint) Hypermetropia, bilateralPresb yopiaDry eye syndrome of bilateral lacrimal glandsAge-rela wanda nuclear cataract, bilateral 0 No Information [facility], [address], [place], [place], [id number] , [place] tel: [phone] [facility] [place] Decrease Vision OU (chief complaint) Hypermetropia, bilateralPresb yopiaDry eye syndrome of bilateral lacrimal glands 9 No Information [facility], [address], [place], [place], [address] , [place] tel: [phone] [facility] [place] Decreased vision ou (chief complaint) Hypermetropia, bilateralPresb yopiaAge-relat ed nuclear cataract, bilateral 0-201 8 No Information OFFICE/OUTPA TIENT VISIT, EST [facility], [address], [place], [place], [address] , tel: [phone] [facility] [place] dry eyes (chief complaint) Dry eyes, bilateral 7 Leland Jane. [address], [place], [address], [place]. [phone] OFFICE/OUTPA TIENT VISIT, EST [facility], [address] [place], [place], [place], [address] , [place] tel:[phone] [facility] [place] Dry eyes (chief complaint) Dry eyes due to decreased tear production 7 Leland Phillipsh. [address], [place], [address], [place]. [phone] Referring Provider: Stevan Taylor, [address] [place] [address], [facility]. tel:[phone] [facility], [address] [place], [place], [place], [id number] , [place] tel: [phone] [facility] [place] decreased vision (chief complaint)Tear ing (chief complaint) Hypermetropia of both eyesBilateral presbyopiaNucl ear senile cataract of both eyesDry eyes, bilateral 7 Jaswinder Calles. [address] [place] [address], [address], [place]. tel:[phone] [facility], [address], [place], [place], [id number] , [place] tel:[phone] [facility] [place] Routine CEE/Crusty OU (chief complaint) Hypermetropia of both eyesBilateral presbyopiaNucl ear senile cataract of both eyes 6 Jaswinder Calles. [address] [place] [address], [address], [place]. tel:[phone] [facility], [address], [place], [place], [address] , [place] tel: [phone] [facility] [place] decreased vision (chief complaint)Floa ters (chief complaint) PresbyopiaHype ropiaCataract Nuclear SenileVitreous floaters 5 Jaswinder Calles. [address] [place] [address] [place], [address], . tel:[phone] [facility], [address], [place], [place], [address] , [place] tel: [phone] [facility] [place] PresbyopiaDry Eye SyndromeCatara ct Nuclear Senile 7-201 4 [facility] Stevan. [address] [place] [address], [address], [place]. tel:[phone] UNLISTED E&M SERVICE [facility], [address], [place], [place], [address] , [place] tel: [phone] [facility] [place] Presbyopia 3201 3 [facility] Stevan. [address] [place] [address], [facility], . tel:[phone] [facility], [address], [place], [place], [id number] , tel: [phone] [facility] [place] Presbyopia Dec-2 7-201 2 [facility] Stevan. [address] [place] [address], [facility], . tel:[phone] OFFICE/OUTPA TIENT VISIT, EST [facility], [address], [place], [place], [address] , [place] tel: [phone] [facility] [place] Dry Eye SyndromeCornea l Erosion Recurrent 4201 2 Eva Barnett. [address], [place], [place], [address], [place]. tel:[phone] [facility], [address], [place], [place], [id number] , [place] tel: [phone] [facility] [place] Presbyopia Dec-2 0-201 1 [facility]. [address] [place] [address], [address], . tel:[phone] [facility], [address], [place], [place], [address] , [place] tel:[phone] [facility] [place] No Information Tai-0 1-201 1 Jaswinder Calles. [address] [facility], [place], [address], [place]. tel:[phone] [facility], [address], [place], [place], [address] , tel: [phone] [facility] No Information 0 3201 1 Magali English. [address] [place], [place], [place], [address], [place]. tel:[phone] OFFICE/OUTPA TIENT VISIT, EST [facility], [address], [place], [place], [id number] , tel: [phone] [facility] [place] No Information 8201 0 Mathewmichele Lucinda. [address], [place], [address], [place]. tel:[phone] OFFICE/OUTPA TIENT VISIT, EST [facility], [address], [place], [place], [address] , tel: [phone] [facility] [place] No Information 9201 0 Leland Jane. [facility] [place], [place], [address], [place]. [phone] Family History Family Member Type Diagnosis Age [...] Provider Payers Payer name Insurance type Covered green party ID Authoriza tion(s) [employer] CI [id number] Social History Type Description Quantity Date Captured Comments Sex Female Smoking Status No Information Chief Complaint And Reason For Visit No Information Reason For Referral Reason For Referral No Information Plan Of Treatment Date Type Action Status Patient Education Health Informa tion for You: MedlinePlus Connect completed Patient Education Health Informa tion for You: MedlinePlus Connect completed Patient Education Dicyclomine: Monalisa edlinePlus Drug Information completed Future Order: Radiology Order Ze [id number] ([id number]), Sent on: Sent History Of Present [...] Pt was treated for corneal abrasion OD 06-26-24 and 5-7-42Pjyyklxkv DC'd 0-5-38Jdwiyiyv OU BID 12pmGenteal OU PRN Corneal Abrasion [...] bothers her most when she is in synagogue. Pt states she does not experience any [...] No Information Instructions Date Instruction Additional Infor matmalika Impression/Plan Impression/Plan Impression/Plan Impression/Plan Impression/Plan Impression/Plan Impression/Plan [...] Dry eyes, bilateral - RV with Dr. Chun sie in 1 month for office call. Related [...] with Dr Dutton next availableRV with any Acute Care Assistant in 1 yr for CEENext available consult [...] to See impression: general plan Presbyopia - [place] + 2.00 add is routine glasses Rx. [...] Related to Presbyopia Assessments Type Assessment Date No Information Patient Care Teams Name Effective Dates (start - stop) Status Members No Information
--- OUTSIDE RECORDS SUMMARY | 2024-10-26 09:31 | XMS_ITS | Referral Summary ---
Author Organization [facility] Address [address] [place] [address] Care Team Providers Care Business Team Leader Name Role Phone Physician, Not Available At [facility] MD Primary Care Provider Unavailable Allergies Active Allergy Reactions Criticality Noted Date Comments Amoxicillin Hives 05/10/2017 Bee Venom Anaphylaxis 04/05/2017 Monosodium Glutamate Shortness of Breath High 2014 Shellfish-Derived Products 6 Sulfa Antibiotics 06/19/2013 Medications Medication Sig Dispensed Refills Start Date End Date Status amphetamine-dextroamph etamine (ADDERALL) 15 MG tablet take by mouth. Active atoMOXetine (STRATTERA) 25 MG capsule take by mouth. Active dicyclomine (BENTYL) 10 MG capsule take by mouth. Active ibuprofen (MOTRIN) 800 MG tablet take by mouth. Active mometasone (NASONEX) 50 MCG/ACT nasal spray into nose. Ac tive montelukast (SINGULAIR) 10 MG tablet take by mouth. Active amphetamine-dextroamph etamine (ADDERALL XR) 15 MG [...] mg by mouth Every morning (before breakfast). Active ALBUTEROL IN take by inhalation. Active Active Problems Problem Noted Date Diagnosed [...] of Treatment Not on file Care Teams Business Team Leader Relationship Specialty Start Date End Date Physician, Not Available At MD Walter PCP - General 04/05/17
--- OUTSIDE RECORDS SUMMARY | 2024-10-26 09:31 | XMS_ITS ---
Author Organization [facility] Address [address] [place] [address] Care Team Providers Care Cement And Concrete Plant Worker Name Role Phone Farshad Cheung MD Primary Care Provider [phone] Jamari Soto MD Unavailable More Davenport MD Unavailable [phone] Active Problems Problem Noted Date Diagnosed Date Papillary thyroid carcinoma 06/01/2022 Overview (06/01/2022): 1.6cm tumor on thyroidectomy pathology. Surgery 02/25/22 at [facility] Family history of diabetes mellitus 06/19/2021 [...] treatments are documented for this patient in [facility]. Treatments may have been administered in another system.
--- OUTSIDE RECORDS SUMMARY | 2024-10-26 09:31 | XMS_ITS | Clinical Summary ---
Author Organization [facility] Address [address] [place] [address] Care Team Providers Care Booth Cashier Name Role Phone Physician, Not Available At [facility] MD Primary Care Provider [...] 1981 Shingrix Vaccine (1 of 2) 2009 Flu Vaccine (#1) 06/22/2024 COVID-19 Vaccine ( - 2023-2 5 season) 2024 RSV Vaccine (Adult) (1 - 1-d ose 75+ series) 2034 Hepatitis B Vaccine Aged Out No longe r eligible based on patient's age to complete this topic Care Teams Booth Cashier Relationship Specialty Start Date End Date Physician, Not Available At MD Walter PCP - General 04/05/17
--- OUTSIDE RECORDS SUMMARY | 2024-10-26 09:31 | XMS_ITS | Clinical Summary ---
[facility] Address [address] [place] [address] Care Team Providers Care Cdl Dedicated Truck Driver Name Role Phone Unavailable Primary Care Provider Unavailabl e Source Comments You are receiving this document as you are listed as the primary care provider,follow-up provider, or the patient has been referred to you for consultation.This is in compliance with the Medicare andCommunity Regional Medical Centercaid EHR Incentive Program,which states Providers who transition their patient to another setting of careor provider of care or refers their patient to another provider of care shouldprovide summary care record for each transition of care or referral. [employer] Allergies Active Allergy Reactions Criticality Noted Date [...] 83 06/23/2021 11:01 AM CDT Temperature 36.7 C (98.1 F) 06/23/2021 11:02 AM CDT Respiratory Rate 18 06/23/2021 11:01 AM CDT [...] of 2) 2009 COVID-19 Vaccine ( - 2023-2 5 season) 2024 Influenza (#1) 2024 DTaP/Tdap/Td (2 - Tdap) 11/16/2030 11/16/2020 RSV (1 - 1-dose 75+ series) 2034 HepA Aged Out No longer eligi ble based on patient's age to complete this topic HepB Aged Out No longer eligi ble based on patient's age to complete this topic Hib Aged Out No longer eligi ble based on patient's age to complete this topic IPV (Polio) Aged Out No longer eligi ble based on patient's age to complete this topic RSV Aged Out No longer eligi ble based on patient's age to complete this topic MCV4 Aged Out No longer eligi ble based on patient's age to complete this topic Pneumococcal Aged Out No longer eligi ble based on patient's age to complete this topic
--- NOTE | 2024-10-26 09:45 | CRLHL7_ITS ---
For Patients: As a result of the Century Cures Act, medical imaging exams and procedure reports are released immediately into your electronic medical record. You may view this report before your referring provider. If you have questions, please contact your health care provider. BILATERAL SCREENING MAMMOGRAM WITH COMPUTER-AIDED DETECTION AND TOMOSYNTHESIS TECHNIQUE: CC and MLO views were obtained. These mammographic images have been obtained using full-field digital technique. These mammographic images were interpreted with the benefit of computer-aided detection. Breast Tomosynthesis was used in this interpretation. COMPARISON FILM: 06/18/23, 05/19/22, 03/26/21. FINDINGS: There are scattered areas of fibroglandular density. IMPRESSION: There is no radiographic evidence for malignancy. ASSESSMENT: BI-RADS Category 1: Negative RECOMMENDATION: Routine screening mammogram in 1 year. A lay language report of this examination will be provided to the patient. Jean Claude Montilla M.D. Diagnostic Radiologist [email or web address] SP/Dictated by: Jean Claude Montilla MD @ 10/30/2024 12:49:00 PM (Electronically Signed)
== END 2024-10-26 09:24 | disposition home or self-care (01) ==
LOC: MAMMO 09:29
PROVIDERS: PCP Emergency Medicine; Visit Provider Emergency Medicine
DX: Z12.31 Encounter for screening mammogram for malignant neoplasm of breast (principal); M54.50 Low back pain, unspecified; R10.32 Left lower quadrant pain; M53.3 Sacrococcygeal disorders, not elsewhere classified
CPT/HCPCS: 77063; 77067

== ENCOUNTER 2024-10-26 13:08 | Outpatient (CLI) | payer BC, SELFPAY ==
--- OUTSIDE RECORDS SUMMARY | 2024-10-31 06:25 | XMS_ITS ---
Author Organization [employer] Address [address] [place] [address] Care Team Providers Care Chief Pharmacist Name Role Phone Farshad Cheung MD Primary Care Provider [phone] Jamari Soto MD Unavailable More Davenport MD Unavailable [phone] Active Problems Problem Noted Date Diagnosed Date Papillary thyroid carcinoma 06/01/2022 Overview (06/01/2022): 1.6cm tumor on thyroidectomy pathology. Surgery 02/25/22 at [facility] Family history of diabetes mellitus [...] treatments are documented for this patient in [facility]. Treatments may have been administered in another system.
--- OUTSIDE RECORDS SUMMARY | 2024-10-31 06:25 | XMS_ITS | Clinical Summary ---
Author Organization [facility] Address [address] [place] [address] Care Team Providers Care Armored Truck Driver Name Role Phone Unavailable Primary Care Provider Unavailabl e Source Comments You are receiving this document as you are listed as the primary care provider,follow-up provider, or the patient has been referred to you for consultation.This is in compliance with the Medicare andPark[facility] Healthcaid EHR Incentive Program,which states Providers who transition their patient to another setting of careor provider of care or refers their patient to another provider of care shouldprovide summary care record for each transition of care or referral. e[employer]obb Allergies Active Allergy Reactions Criticality Noted Date [...]
--- OUTSIDE RECORDS SUMMARY | 2024-10-31 06:25 | XMS_ITS | Clinical Summary ---
Author Organization [facility] Address [address] [facility] [place] [address] Care Team Providers Care Medical Or Surgical Instrument Maker Name Role Phone Farshad Cheung MD Primary Care Provider [phone] Jamari Soto MD Unavailable More Davenport MD Unavailable [phone] Source Comments [facility] includes the following individual entities: [facility] (inclues all departments and units of [facility] such as [facility], [facility], [facility], [facility], [facility], [facility]), [facility], [facility], [facility], [facility] Allergies Active Allergy Reactions Criticality Noted [...] puff into the lungs as needed. Active Spumibm-Tgeowjdmj-Tyki min D (CALCIUM 500 PO) Take 500 mg by mouth daily. Active amphetamine-dextroamph etamine (ADDERALL, 15MG,) 15 MG tabletIndications:inst ructed as PRN Take 10 mg by mouth daily. Active esomeprazole (NEXIUM) 40 MG granules Take 40 mg by mouth. Active Active Problems Problem Noted Date Diagnosed Date Papillary thyroid carcinoma 06/01/2022 Overview (06/01/2022): 1.6cm tumor on thyroidectomy pathology. Surgery 02/25/22 at [facility] Family history of diabetes mellitus 06/19/2021 [...] is a reportable result to the local ([facility]) public health department. Please, contact the appropriate health department. 06/09/2019 11:1 0 AM EDT 06/09/2019 2:25 PM EDT Narrative [facility] - 06/09/2019 4:12 PM EDT Fasting patient Nilesh Lynch MD LAB BLOOD ORDERA BLES [facility] SRL MAIN * Mammo Screening [...] 02/06/2016 02/07/2016 8:5 1 AM EDT Narrative [facility] - 02/07/2016 4:02 PM EDT SPECIMEN SOURCE: Endocervical, Cervical SPECIMEN TYPE: ThinPrep (Liquid Based) CLINICAL DATA: Postmenopause REASON FOR PAP SMEAR: Screening Low Risk SPECIMEN 1: Screening thinprep pap smear SPECIMEN ADEQUACY: Satisfactory for evaluation. Endocervical/transformation zone component is present. GENERAL DIAGNOSTIC CATEGORY: Negative for intraepithelial lesion or malignancy. Diagnostician:Dru FARIA(ASCP) Rehabilitation Clerk Electronically Signed 02/07/2016 Jamari Soto MD PATHOLOGY/CYTOLOGY O RDERABLES [facility] from Last 3 Months or Most Recently Relevant to Health Maintenance Care Teams Medical Or Surgical Instrument Maker Relationship Specialty Start Date End Date Farshad Cheung MD [address] [place] [address] PCP - General 02/11/12 Jamari Soto MD [address] [place] [address] Obstetrics and Gynecology 09/27/13 More Davenport MD [address] [facility] [address] [place], [place] [id number] Director Of Curriculum Obstetrics and Gynecology 11/03/16
--- OUTSIDE RECORDS SUMMARY | 2024-10-31 06:26 | XMS_ITS | Referral Summary ---
Author Organization [facility] Address [address] [place] [address] Care Team Providers Care Food Operations Manager Name Role Phone Physician, Not Available At [facility] MD Primary Care Provider Unavailable [...] of Treatment Not on file Care Teams Food Operations Manager Relationship Specialty Start Date End Date Physician, Not Available At MD Walter PCP - General 04/05/17
--- OUTSIDE RECORDS SUMMARY | 2024-10-31 06:26 | XMS_ITS | Clinical Summary ---
Author Organization [facility] Address [address] [place] [address] Care Team Providers Care Change Management Manager Name Role Phone Physician, Not Available At [facility] MD Primary Care Provider Unavailable Allergies [...] age to complete this topic Care Teams Change Management Manager Relationship Specialty Start Date End Date Physician, Not Available At MD Walter PCP - General 04/05/17
--- OUTSIDE RECORDS SUMMARY | 2024-10-31 06:26 | XMS_ITS | Continuity of Care Document ---
Author Organization [facility] Address [address] [place] [address] Phone Care Team Providers Care Gamb Cutter Name Role Phone Caitlin OD, Carol Unavailable [...] IN BOTH EYES TWICE DAILY - Active [id number] approved through 10/04/2025 Polytrim 10,000 unit-1 mg/mL [...] Encounter [facility], [address], [place], [id number] , tel:[phone] [facility] [place] No Information 4 Caitlinlogan Melvint. [address], [place], [place], [address], . [phone] [facility], [address], [place], [place], [address] , tel: [phone] [facility] [place] routine exam (chief complaint) Hyperopia of both eyesRegular astigmatism, right eyePresbyopia of both eyesChronic dryness of both eyesNuclear sclerosis of both eyesCortical age-related cataract, both eyes 4 Caitlinlogan Melvint. [address], [place], [place], [address], [place]. [phone] OFFICE/OUTPA TIENT VISIT, EST [facility], [address], [place], [place], [address] , [place] tel: [phone] [facility] [place] Corneal Abrasion OD (chief complaint) Hyperopia of both eyesAbrasion of right cornea, subsequent encounter 4 Ellis Seymour. [address], [place], [place], [address], [place]. [phone] OFFICE/OUTPA TIENT VISIT, EST [facility], [address], [place], [place], [id number] , [place] tel: [phone] [facility] [place] trauma/injury (chief complaint) Abrasion of right cornea, initial encounter 4 Ellis Seymour. [address], [place], [place], [address], [place]. [phone] [facility], [address], [place], [place], [address] , tel: [phone] [facility] [place] Keratoconjunct ivitis sicca / Cataract OU / PVD OU (chief complaint) Dry eye syndrome, bilateralNucle ar sclerosis of both eyesCortical age-related cataract, both eyesPVD (posterior vitreous detachment), right eyeVitreous syneresis, left 4 Caitlin Carol. [address], [place], [id number], . tel:[phone] [facility], [address], [place], [address] , tel: [phone] [facility] [place] No Information 4 Caitlin Carol. [address], [place], [address], . tel:[phone] [facility], [address], [place], [place], [address] , tel:[phone] [facility] [place] Hyperopia OU / Astigmatism OU (chief complaint) Hyperopia of both eyesRegular astigmatism, right eyePresbyopia of both eyes 3 Caitlin Carol. [address], [place], [place], [address], [place]. tel:[phone] [facility], [address], [place], [place], [address] , tel:[phone] [facility] [place] decreased NVA (chief complaint) Nuclear sclerosis of both eyesCortical age-related cataract, both eyesPVD (posterior vitreous detachment), right eyeVitreous syneresis of left eyeKeratoconju nctivitis siccaHyperopia of both eyesRegular astigmatism of both eyesPresbyopia of both eyes 2 Caitlin Carol. [address], [place], [place], [address], [place]. tel:[phone] [facility], [address], [place], [place], [address] , tel:[phone] [facility] [place] s/p Bilateral upper eyelid blepharoplasty (chief complaint) Postoperative eye state 2 Rylan Jorge. [address], [place], [place], [address], [place]. tel:[phone] [facility], [address], [place], [place], [address] , [place] tel:[phone] [facility] [place] F/u exam, postop (chief complaint) Post-operative state 2 Rylan Jorge. [address], [place], [place], [address], [place]. [phone] [facility], [address], [place], [place], [address] , [place] tel:[phone] [facility] No Information 2 Rylan Jorge. [address], [place], [place], [address], [place]. tel:[phone] UNLISTED E&M SERVICE [facility], [address], [place], [place], [address] , [place] tel:[phone] [facility] [place] Surgery Scheduling (chief complaint) Dermatochalasi s of right upper eyelidDermatoc halasis of left upper eyelid 2 Rylan Jorge. [address], [place], [place], [address], [place]. tel:[phone] OFFICE/OUTPA TIENT VISIT, EST [facility], [address], [place], [place], [address] , [place] [phone] [facility] [place] Blepharoplasy OU/ DMC OU (chief complaint) Dermatochalasi s of right upper eyelidDermatoc halasis of left upper eyelidEczemato us dermatitis of right upper eyelidEczemato us dermatitis of right lower eyelidEczemato us dermatitis of left upper eyelidEczemato us dermatitis of left lower eyelid 2 Rylan Jorge. [address], [place], [place], [address], [place]. tel:[phone] Referring Provider: Luisito Mtz, [address], [place], [address] . tel:[phone] [facility], [address], [place], [place], [address] , [place] tel: [phone] [facility] [place] Dry Eye and Irritation (chief complaint) Keratoconjunct ivitis siccaHyperopia of both eyesPresbyopia of both eyesDermatocha lasis of right upper eyelidDermatoc halasis of left upper eyelid 1 Baljinder Hernandez. [address] [facility], [address], [place], [address], [place]. tel:[phone] [facility], [address], [place], [place], [address] , [place] tel: [phone] [facility] [place] Cloudy vision (chief complaint) Combined form of age-related cataract, both eyesPresbyopia of both eyesInsufficie ncy of tear film of both eyes 1 Eva Barnett. [address], [place], [place], [address], . [phone] [facility], [address], [place], [place], [address] , [place] tel: [phone] [facility] [place] SHAR OU (chief complaint) Hypermetropia, bilateralPresb yopiaDry eye syndrome of bilateral lacrimal glandsAge-rela wanda nuclear cataract, bilateral 0 No Information [facility], [address], [place], [place], [id number] , [place] tel: [phone] [facility] [place] Decrease Vision OU (chief complaint) Hypermetropia, bilateralPresb yopiaDry eye syndrome of bilateral lacrimal glands 9 No Information [facility], [address], [place], [place], [address] , [place] tel: [phone] [facility] [place] Decreased vision ou (chief complaint) Hypermetropia, bilateralPresb yopiaAge-relat ed nuclear cataract, bilateral 0-201 8 No Information OFFICE/OUTPA TIENT VISIT, EST [facility], [address], [place], [place], [id number] , tel: [phone] [facility] [place] dry eyes (chief complaint) Dry eyes, bilateral 7 Leland Jane. [address], [place], [address], [place]. [phone] OFFICE/OUTPA TIENT VISIT, EST [facility], [address], [place], [place], [id number] , [place] tel:[phone] [facility] [place] Dry eyes (chief complaint) Dry eyes due to decreased tear production 7 Leland Phillipsh. [address], [place], [address], [place]. [phone] Referring Provider: Stevan Taylor, [address] [place] [address], [facility]. tel:[phone] [facility], [address], [place], [place], [address] , [place] tel: [phone] [facility] [place] decreased vision (chief complaint)Tear ing (chief complaint) Hypermetropia of both eyesBilateral presbyopiaNucl ear senile cataract of both eyesDry eyes, bilateral 7 Jaswinder Calles. [address] [place] [address], [address], [place]. tel:[phone] [facility], [address], [place], [place], [address] , [place] tel:[phone] [facility] [place] Routine CEE/Crusty OU (chief complaint) Hypermetropia of both eyesBilateral presbyopiaNucl ear senile cataract of both eyes 6 Jaswinder Calles. [address] [place] [address], [address], [place]. tel:[phone] [facility], [address], [place], [place], [address] , [place] tel: [phone] [facility] [place] decreased vision (chief complaint)Floa ters (chief complaint) PresbyopiaHype ropiaCataract Nuclear SenileVitreous floaters 5 Jaswinder Calles. [address] [place] [address] [place], [address], . tel:[phone] [facility], [address], [place], [place], [address] , [place] tel: [phone] [facility] [place] PresbyopiaDry Eye SyndromeCatara ct Nuclear Senile 7-201 4 [facility]. [address] [place] [address], [address], [place]. tel:[phone] UNLISTED E&M SERVICE [facility], [address], [place], [place], [address] , [place] tel: [phone] [facility] [place] Presbyopia 3201 3 [facility]. [address] [place] [address], [facility], . tel:[phone] [facility], [address], [place], [place], [address] , tel: [phone] [facility] [place] Presbyopia Dec-2 7-201 2 [facility]. [address] [place] [address], [facility], . tel:[phone] OFFICE/OUTPA TIENT VISIT, EST [facility], [address], [place], [place], [address] , [place] tel: [phone] [facility] [place] Dry Eye SyndromeCornea l Erosion Recurrent 4201 2 Eva Barnett. [address], [place], [place], [address], [place]. tel:[phone] [facility], [address], [place], [place], [address] , [place] tel: [phone] [facility] [place] Presbyopia Dec-2 0-[address] [facility]. [address] [place] [address], [address], . tel:[phone] [facility], [address], [place], [place], [address] , [place] tel:[phone] [facility] [place] No Information Tai-0 1-201 1 Jaswinder Calles. [address] [facility], [place], [address], [place]. tel:[phone] [facility], [address], [place], [place], [address] , tel: [phone] [facility] [place] No Information 0 3201 1 Magali English. [address], [place], [place], [address], [place]. tel:[phone] OFFICE/OUTPA TIENT VISIT, EST [facility], [address], [place], [place], [address] , tel: [phone] [facility] [place] No Information 8201 0 Mathewmichele Lucinda. [address], [place], [address], [place]. tel:[phone] OFFICE/OUTPA TIENT VISIT, EST [facility], [address], [place], [place], [address] , tel: [phone] [facility] [place] No Information 9201 0 Leland Jane. [facility] [address], [place], [address], [place]. [phone] Family History Family Member Type Diagnosis Age [...] name Insurance type Covered constitution party ID Authoriza tion(s) [employer] CI [id number] Social History Type Description Quantity Date Captured [...] Information completed Future Order: Radiology Order Ze [id number] (8-[id number]), Sent on: Sent History Of Present [...] treated for corneal abrasion OD 06-26-24 and 4-1-29Cjcaldnbn DC'd 6-0-93Mlacghuc OU BID 12pmGenteal OU PRN Corneal Abrasion [...] bothers her most when she is in sabianism. Pt states she does not experience any [...] with Dr Dutton next availableRV with any Gold Layer in 1 yr for CEENext available consult [...] to See impression: general plan Presbyopia - Hiram + 2.00 add is routine glasses Rx. [...]
== END 2024-10-26 13:09 | disposition home or self-care (01) ==
LOC: NFLDREF 10-31 06:24
PROVIDERS: PCP Emergency Medicine; Referring Provider Emergency Medicine; Visit Provider Family Medicine
DX: R10.32 Left lower quadrant pain (principal)
CPT/HCPCS: 87086

== ENCOUNTER 2024-12-05 15:15 | Outpatient (RCR) | payer MEDICARE, SELFPAY | END 2025-01-23 10:46 | disposition home or self-care (01) | PROVIDERS: PCP Emergency Medicine; Visit Provider Family Medicine | DX: M53.3 Sacrococcygeal disorders, not elsewhere classified (principal); R26.9 Unspecified abnormalities of gait and mobility; M79.10 Myalgia, unspecified site; M54.50 Low back pain, unspecified; Z51.89 Encounter for other specified aftercare | CPT/HCPCS: 97110; 97140; 97161; 97162 ==